=== PATIENT | male | born 1970 | race Caucasian/White ===

== ENCOUNTER → 2018-05-01 09:24 | Outpatient (CLI) | payer OTHER, SELFPAY ==
--- NOTE | 2018-05-01 09:34 | RAD_ITS ---
STUDY: X-RAY - LEFT WRIST REASON FOR EXAM: Male, 47 years old. Medial wrist pain. History of gout. TECHNIQUE: 3 view(s) of the wrist were obtained. COMPARISON: None. FINDINGS: Normal visualized distal radius and ulna. Normal radiocarpal articulation. There is a negative ulnar variance. Normal carpal bones. Normal carpal articulations. Normal carpometacarpal articulation of the thumb. Normal second through fifth carpometacarpal articulations. Normal visualized metacarpal bones. The soft tissue structures are unremarkable. There is no demonstrated osseous destructive lesion. There is no demonstrated acute fracture. RAD/Wrist min 3 Views IMPRESSION: No acute osseous abnormality of the left wrist. Electronically Signed: Syed Grace MD at 19:51 EDT , Service support ,
== END ==
PROVIDERS: Family Provider Nurse Practitioner; PCP Nurse Practitioner; Visit Provider Nurse Practitioner
DX: M25.532 Pain in left wrist (principal)
CPT/HCPCS: 73110

== ENCOUNTER → 2018-08-21 07:52 | Outpatient (CLI) | payer OTHER, SELFPAY ==
--- NOTE | 2018-08-21 14:08 | NEURO ---
NCS and/or EMG Patient Report Ordering Doctor: Nina Fuller DATE OF SERVICE: 08/21/18 Tray Trujillo is a 48-year-old male presents for electrodiagnostic testing of the left upper limb. He has a chief complaint of left wrist pain with intermittent left hand numbness. Electrodiagnostic findings: Left median motor nerve demonstrates normal distal latency, amplitude and conduction velocity. Normal left ulnar motor response, including conduction across the elbow. Normal left median and ulnar F wave. Sensory responses are within normal limits. On needle EMG all muscles tested in the left upper limb showed no evidence of denervation with normal motor unit action potentials. Electrodiagnostic impression: This is a normal electrodiagnostic study of the left upper limb. There is no electrodiagnostic evidence for peripheral neuropathy, including carpal tunnel syndrome. There is no electrodiagnostic evidence for cervical radiculopathy. If there are any further questions, please do not hesitate to contact me.
== END ==
PROVIDERS: Family Provider Nurse Practitioner; PCP Nurse Practitioner; Referring Provider Nurse Practitioner; Visit Provider Nurse Practitioner
DX: M25.532 Pain in left wrist (principal)
CPT/HCPCS: 95886; 95910

== ENCOUNTER 2023-11-25 20:42 | Emergency (ER) | payer OTHER, SELFPAY ==
[2023-11-25 20:43] VITALS: BP 139/90; PULSE 95; RESP 13; TEMP 36.4; O2SAT 100; BMI 34.0
--- OUTSIDE RECORDS SUMMARY | 2023-11-25 21:13 | XMS RPT_ITS | CCD ---
Author Name Unknown Address [address] [place] [address] Organization [facility] Care Team Providers Care Real Estate Loan Processor Name Role Phone Nina Fuller Unavailable Charlotte Kenny Unavailable Unavailable Unavailable Unavailable Nina Fuller Unavailable Debbie Quiros Unavailable Unavailable Unavailable Unavailable Gustavo Pulido Unavailable Unavailable Gustavo Mares Unavailable Unavailable Corey Maher Unavailable Nina Fuller CNP Unavailable Dr. Corey Maher Unavailable Gustavo Mares LPN Unavailable Unavailable Unavailable Unavailable Nina Fuller Unavailable Nina Fuller Referring Unavailable Brenna Dobson CNP Attending Unavailable Brenna Dobson CNP Consulting Unavailable Brenna Dobson CNP Unavailable [phone] Brenna Dobson CNP Unavailable [phone] Nina Fuller Unavailable Logan Mar CMA Unavailable Unavailable Medications Current Medications Medication Drug Class(es) Dates Sig (Normalized) Sig (Original) rosuvastatin calcium 5 mg oral tablet (20 sources) HMG-CoA Reductase Inhibitor Start: 07-30-2023 take 1 tablet by mouth once daily at bedtime rosuvastatin 5 mg oral tablet 1 (one) Tablet qhs for 0 days Quantity: 90 {Tablet} Refills: 0 Ordered: 30-Jul-2023 Brenna Dobson CNP Start : 30-Jul-2023 Active Completed/Discontinued Medications Medication Drug Class(es) Dates Sig (Normalized) Sig (Original) allopurinol 300 mg oral tablet (20 sources) Xanthine Oxidase Inhibitor Start: 08-17-2022 take 1 tablet by mouth once daily at mealtime Allopurinol 300 MG Oral Tablet 1 (one) Tablet daily with food for 0 days Quantity: 90 {Tablet} Refills: 3 Ordered: 17-Aug-2022 Brenna Dobson CNP Start : 17-Aug-2022 Active Problems Active Problems Problem Classification Problem Date Documented Da te Episodic/Chronic Complications of surgical procedures or medical care (15 sources) Drug therapy finding; Translations: [Medication side effect] Resolved: 03-28-2019 09-26-2019 Episodic Past or Other Problems Problem Classification Problem Date Documented Da te Episodic/Chronic External Injury - Adverse effects of medical drugs (5 sources) Medication side effects present; Translations: [Medication side effect] 07-26-2018 Results Test Name Value Interpretation Reference Range Facil ity Vital Signs Date Time Vital Sign Value Performing Clinician Facility 09-22-2022 08:03-0500 Body height 175.26 cm [facility]; [facility] Work Phone: 09-22-2022 08:03-0500 Body mass index (BMI) [Ratio] 31.79 kg/m2 [facility]; [facility] Work Phone: 09-22-2022 08:03-0500 Body surface area Derived from formula 2.13 m2 [facility]; [facility] Work Phone: 09-22-2022 08:03-0500 Body temperature 97 [degF] [facility]; [facility] Work Phone: 09-22-2022 08:03-0500 Body weight 97.64 kg [facility]; [facility] Work Phone: 09-22-2022 08:03-0500 Diastolic blood pressure 82 mm[Hg] [facility]; [facility] Work Phone: Encounters Encounter Date Encounter Type Care Provider Facility Start: 09-22-2022 End: 09-22-2022 Office outpatient visit 15 minutes Brenna Dobson CNP Work Phone: [facility] Start: 08-16-2022 ambulatory Nina [facility] Start: 09-30-2021 End: 09-30-2021 Office outpatient visit 25 minutes Nina Fuller Work Phone: [facility] Start: 09-30-2021 End: 09-30-2021 Annotation/Addendum Nina Fuller Work Phone: [facility] Start: 09-24-2021 End: 09-24-2021 Annotation/Addendum Nina Fuller Work Phone: [facility] Start: 04-01-2021 End: 04-01-2021 Office outpatient visit 25 minutes Nina Fuller [employer] Work Phone: [facility] Start: 04-01-2021 Review Nina Fuller [facility] [employer] Work Phone: [facility] Start: 12-20-2020 End: 12-20-2020 Patient encounter procedure Nina [facility] Start: 10-01-2020 End: 10-01-2020 Office outpatient visit 15 minutes Nina Fuller [facility] Start: 09-25-2020 End: 09-25-2020 Annotation/Addendum Nina Ayusholive [facility] Start: 04-09-2020 End: 04-09-2020 Office outpatient visit 25 minutes Nina Analibernie [facility] Start: 09-26-2019 End: 09-26-2019 Office outpatient visit 25 minutes Nina Analibernie [facility] Start: 09-21-2019 End: 09-21-2019 Patient encounter procedure Nina Analibernie [facility] Start: 03-28-2019 Review Nina Dawsonens [facility] Start: 03-28-2019 End: 03-28-2019 Office outpatient visit 25 minutes Nina [facility] Start: 12-06-2018 End: 12-06-2018 Annotation/Addendum Nina Ayusholive [facility] Start: 11-29-2018 End: 11-29-2018 Office outpatient visit 25 minutes Nina [facility] Start: 07-26-2018 End: 07-26-2018 Office outpatient visit 25 minutes Nina Fuller [facility] Start: 05-01-2018 End: 05-01-2018 Office outpatient visit 25 minutes Nina Fuller [facility] Start: 04-19-2018 End: 04-19-2018 Office outpatient visit 15 minutes Nina Fuller [facility] Start: 12-28-2017 End: 12-28-2017 Office outpatient visit 25 minutes Nina [facility] Start: 12-12-2017 End: 12-12-2017 Office outpatient new 30 minutes Nina Fuller [facility] Procedures Date Procedure Procedure Detail Performing Clinician Start: 08-21-2018 End: 08-21-2018 NCS and/or EMG Patient Comments: See Note; NOTES: [facility] Pulmonary Services/Neurology [address] [place] [address] MR#: [id number] Acct: [id number] Name: TRAY TRUJILLO Rep #: [id number] : 1970 48 From: Kaley Linton MD Referring Dr: Nina Fuller NP Status: REG CLI Ordering Dr: Date: Location: [facility] Sex: M C NCS and/or EMG Patient Report Ordering Doctor: Nina Fuller DATE OF SERVICE: 08/21/18 Tray Trujillo is a 48-year-old male presents for electrodiagnostic testing of the left upper limb. He has a chief complaint of left wrist pain with intermittent left hand numbness. Electrodiagnostic findings: Left median motor nerve demonstrates normal distal latency, amplitude and conduction velocity. Normal left ulnar motor response, including conduction across the elbow. Normal left median and ulnar F wave. Sensory responses are within normal limits. On needle EMG all muscles tested in the left upper limb showed no evidence of denervation with normal motor unit action potentials. Electrodiagnostic impression: This is a normal electrodiagnostic study of the left upper limb. There is no electrodiagnostic evidence for peripheral neuropathy, including carpal tunnel syndrome. There is no electrodiagnostic evidence for cervical radiculopathy. If there are any further questions, please do not hesitate to contact me. 08/21/18 1422 <Electronically signed by Kaley Linton MD> Date Kaley Linton MD CC: Nina Fuller NP; Kaley Linton Date Dictated: 08/21/181407 Date Transcribed: 08/21/181407 Explosive Ordnance Disposal Manager: UMA Signed Nina Fuller Start: 05-01-2018 End: 05-01-2018 Wrist min 3 Views Comments: See Note; NOTES: [facility] Imaging Services [address] [place] [address] Wrist min 3 Views MR#: [id number] Acct: [id number] Name: TRAY TRUJILLO Rep #: [id number] : 1970 M 47 From: Abiodun Grace MD PCP: Nina Fuller NP Status: REG CLI Study: Wrist min 3 Views Date of Exam: 05/01/18 Exam# [id number] Ordering Dr: Nina Fuller STUDY: X-RAY - LEFT WRIST REASON FOR EXAM: Male, 47 years old. Medial wrist pain. History of gout. TECHNIQUE: 3 view(s) of the wrist were obtained. COMPARISON: None. FINDINGS: Normal visualized distal radius and ulna. Normal radiocarpal articulation. There is a negative ulnar variance. Normal carpal bones. Normal carpal articulations. Normal carpometacarpal articulation of the thumb. Normal second through fifth carpometacarpal articulations. Normal visualized metacarpal bones. The soft tissue structures are unremarkable. There is no demonstrated osseous destructive lesion. There is no demonstrated acute fracture. RAD/Wrist min 3 Views IMPRESSION: No acute osseous abnormality of the left wrist. Electronically Signed: Syed Grace MD at 19:51 EDT , Service support , CC: Nina Fuller NP Explosive Ordnance Disposal Manager: Signed Nina Fuller Work Phone: Plan of Treatment Date Care Activity Detail Author Start: 09-22-2022 Procedure Education Eprescribed prescriptions (G8553) [facility] Work Phone: Start: 09-22-2022 Provider Instructions for Treatment [facility] Work Phone: Start: 09-30-2021 Procedure Education Eprescribed prescriptions (G8553) [facility] Work Phone: Start: 09-30-2021 Provider Instructions for Treatment [facility] Work Phone: Start: 09-30-2021 Assay of prostate specific antigen total PSA (PROSTATE SPECIFIC ANTIGEN) (V76.44) [facility] Work Phone: Payers Date Payer Category Payer Private Health Insurance [id number] 1970 Unknown [id number] Private Health Insurance [id number] Unknown Unknown [id number] Social History Date Type Detail Facility Alcohol use [facility] Work Phone: Instructions Note Date & Type Note Facility [facility] Work Phone: Instructions Note Date & Type Note Facility [facility] Work Phone: Instructions Note Date & Type Note Facility [facility]; [facility] Work Phone: Instructions Note Date & Type Note Facility [facility] Work Phone: Instructions Note Date & Type Note Facility [facility]; [facility] Work Phone: Family History Unknown Family Member Name Dates Details Maternal Grandfather Comments:DE Status:Active Maternal Grandmother Comments:breast and thyroid cancer, throat cancer Status:Active Unknown Family Member Name Dates Details Maternal Grandfather Comments:DE Status:Active Maternal Grandmother Comments:breast and thyroid cancer, throat cancer Status:Active Unknown Family Member Name Dates Details Maternal Grandfather Comments:DE Status:Active Maternal Grandmother Comments:breast and thyroid cancer, throat cancer Status:Active Unknown Family Member Name Dates Details Maternal Grandfather Comments:DE Status:Active Maternal Grandmother Comments:breast and thyroid cancer, throat cancer Status:Active Unknown Family Member Name Dates Details Maternal Grandfather Comments:DE Status:Active Maternal Grandmother Comments:breast and thyroid cancer, throat cancer Status:Active Unknown Family Member Name Dates Details Maternal Grandfather Comments:DE Status:Active Maternal Grandmother Comments:breast and thyroid cancer, throat cancer Status:Active Unknown Family Member Name Dates Details Maternal Grandfather Comments:DE Status:Active Maternal Grandmother Comments:breast and thyroid cancer, throat cancer Status:Active Unknown Family Member Name Dates Details Maternal Grandfather Comments:DE Status:Active Maternal Grandmother Comments:breast and thyroid cancer, throat cancer Status:Active Unknown Family Member Name Dates Details Maternal Grandfather Comments:DE Status:Active Maternal Grandmother Comments:breast and thyroid cancer, throat cancer Status:Active Unknown Family Member Name Dates Details Maternal Grandfather Comments:DE Status:Active Maternal Grandmother Comments:breast and thyroid cancer, throat cancer Status:Active Unknown Family Member Name Dates Details Maternal Grandfather Comments:DE Status:Active Maternal Grandmother Comments:breast and thyroid cancer, throat cancer Status:Active Unknown Family Member Name Dates Details Maternal Grandfather Comments:DE Status:Active Maternal Grandmother Comments:breast and thyroid cancer, throat cancer Status:Active Unknown Family Member Name Dates Details Maternal Grandfather Comments:DE Status:Active Maternal Grandmother Comments:breast and thyroid cancer, throat cancer Status:Active Unknown Family Member Name Dates Details Maternal Grandfather Comments:DE Status:Active Maternal Grandmother Comments:breast and thyroid cancer, throat cancer Status:Active Unknown Family Member Name Dates Details Maternal Grandfather Comments:DE Status:Active Maternal Grandmother Comments:breast and thyroid cancer, throat cancer Status:Active Unknown Family Member Name Dates Details Maternal Grandfather Comments:DE Status:Active Maternal Grandmother Comments:breast and thyroid cancer, throat cancer Status:Active Unknown Family Member Name Dates Details Maternal Grandfather Comments:DE Status:Active Maternal Grandmother Comments:breast and thyroid cancer, throat cancer Status:Active Unknown Family Member Name Dates Details Maternal Grandfather Comments:DE Status:Active Maternal Grandmother Comments:breast and thyroid cancer, throat cancer Status:Active Unknown Family Member Name Dates Details Maternal Grandfather Comments:DE Status:Active Maternal Grandmother Comments:breast and thyroid cancer, throat cancer Status:Active Instructions Name Dates Details Nonsmoker : How to access he alth information online Indication:Nonsmoker Nonsmoker : How to access he alth information online - Detail Indication:Nonsmoker Nonsmoker : Patient Instruct ions Indication:Nonsmoker Impaired fasting glucose : H ow to access health information online Indication:Impaired fasting glucose Impaired fasting glucose : H ow to access health information online - Detail Indication:Impaired fasting glucose Impaired fasting glucose : P atient Instructions Indication:Impaired fasting glucose Hypertension : How to access health information online Indication:Hypertension Hypertension : How to access health information online - Detail Indication:Hypertension Hematuria : Patient Instruct ions Indication:Hematuria Hypertension : Patient Instr uctions Indication:Hypertension Name Dates Details Impaired fasting glucose : H ow to access health information online Indication:Impaired fasting glucose Impaired fasting glucose : H ow to access health information online - Detail Indication:Impaired fasting glucose Impaired fasting glucose : P atient Instructions Indication:Impaired fasting glucose Nonsmoker : How to access he alth information online Indication:Nonsmoker Nonsmoker : How to access he alth information online - Detail Indication:Nonsmoker Nonsmoker : Patient Instruct ions Indication:Nonsmoker Hypertension : How to access health information online Indication:Hypertension Hypertension : How to access health information online - Detail Indication:Hypertension Hematuria : Patient Instruct ions Indication:Hematuria Hypertension : Patient Instr uctions Indication:Hypertension Name Dates Details Impaired fasting glucose : H ow to access health information online Indication:Impaired fasting glucose Impaired fasting glucose : H ow to access health information online - Detail Indication:Impaired fasting glucose Impaired fasting glucose : P atient Instructions Indication:Impaired fasting glucose Nonsmoker : How to access he alth information online Indication:Nonsmoker Nonsmoker : How to access he alth information online - Detail Indication:Nonsmoker Nonsmoker : Patient Instruct ions Indication:Nonsmoker Hypertension : How to access health information online Indication:Hypertension Hypertension : How to access health information online - Detail Indication:Hypertension Hematuria : Patient Instruct ions Indication:Hematuria Hypertension : Patient Instr uctions Indication:Hypertension Name Dates Details Impaired fasting glucose : H ow to access health information online Indication:Impaired fasting glucose Impaired fasting glucose : H ow to access health information online - Detail Indication:Impaired fasting glucose Impaired fasting glucose : P atient Instructions Indication:Impaired fasting glucose Nonsmoker : How to access he alth information online Indication:Nonsmoker Nonsmoker : How to access he alth information online - Detail Indication:Nonsmoker Nonsmoker : Patient Instruct ions Indication:Nonsmoker Hypertension : How to access health information online Indication:Hypertension Hypertension : How to access health information online - Detail Indication:Hypertension Hematuria : Patient Instruct ions Indication:Hematuria Hypertension : Patient Instr uctions Indication:Hypertension Name Dates Details Impaired fasting glucose : H ow to access health information online Indication:Impaired fasting glucose Impaired fasting glucose : H ow to access health information online - Detail Indication:Impaired fasting glucose Impaired fasting glucose : P atient Instructions Indication:Impaired fasting glucose Nonsmoker : How to access he alth information online Indication:Nonsmoker Nonsmoker : How to access he alth information online - Detail Indication:Nonsmoker Nonsmoker : Patient Instruct ions Indication:Nonsmoker Hypertension : How to access health information online Indication:Hypertension Hypertension : How to access health information online - Detail Indication:Hypertension Hematuria : Patient Instruct ions Indication:Hematuria Hypertension : Patient Instr uctions Indication:Hypertension Name Dates Details How to access health informa tion online Indication:Impaired fasting glucose Start:28-Mar-2019 Instruction Type:Patient Education How to access health informa tion online - Detail Indication:Impaired fasting glucose Start:28-Mar-2019 Instruction Type:Patient Education Patient Instructions Indication:BMI 30.0-30.9,adult Start:28-Mar-2019 Instruction Type:Provider Instructions for Treatment How to access health informa tion online Indication:Impaired fasting glucose Start:29-Nov-2018 Instruction Type:Patient Education How to access health informa tion online - Detail Indication:Impaired fasting glucose Start:29-Nov-2018 Instruction Type:Patient Education Patient Instructions Indication:Impaired fasting glucose Start:29-Nov-2018 Instruction Type:Provider Instructions for Treatment How to access health informa tion online Indication:Nonsmoker Start:26-Jul-2018 Instruction Type:Patient Education How to access health informa tion online - Detail Indication:Nonsmoker Start:26-Jul-2018 Instruction Type:Patient Education Patient Instructions Indication:Nonsmoker Start:26-Jul-2018 Instruction Type:Provider Instructions for Treatment How to access health informa tion online Indication:Nonsmoker Start:01-May-2018 Instruction Type:Patient Education How to access health informa tion online - Detail Indication:Nonsmoker Start:01-May-2018 Instruction Type:Patient Education Patient Instructions Indication:Nonsmoker Start:01-May-2018 Instruction Type:Provider Instructions for Treatment How to access health informa tion online Indication:Impaired fasting glucose Start:19-Apr-2018 Instruction Type:Patient Education How to access health informa tion online - Detail Indication:Impaired fasting glucose Start:19-Apr-2018 Instruction Type:Patient Education Patient Instructions Indication:Impaired fasting glucose Start:19-Apr-2018 Instruction Type:Provider Instructions for Treatment How to access health informa tion online Indication:Hypertension Start:28-Dec-2017 Instruction Type:Patient Education How to access health informa tion online - Detail Indication:Hypertension Start:28-Dec-2017 Instruction Type:Patient Education Patient Instructions Indication:Hematuria Start:28-Dec-2017 Instruction Type:Provider Instructions for Treatment How to access health informa tion online Indication:Hypertension Start:12-Dec-2017 Instruction Type:Patient Education How to access health informa tion online - Detail Indication:Hypertension Start:12-Dec-2017 Instruction Type:Patient Education Patient Instructions Indication:Hypertension Start:12-Dec-2017 Instruction Type:Provider Instructions for Treatment Name Dates Details How to access health informa tion online Indication:Impaired fasting glucose Start:28-Mar-2019 Instruction Type:Patient Education How to access health informa tion online - Detail Indication:Impaired fasting glucose Start:28-Mar-2019 Instruction Type:Patient Education Patient Instructions Indication:BMI 30.0-30.9,adult Start:28-Mar-2019 Instruction Type:Provider Instructions for Treatment How to access health informa tion online Indication:Impaired fasting glucose Start:29-Nov-2018 Instruction Type:Patient Education How to access health informa tion online - Detail Indication:Impaired fasting glucose Start:29-Nov-2018 Instruction Type:Patient Education Patient Instructions Indication:Impaired fasting glucose Start:29-Nov-2018 Instruction Type:Provider Instructions for Treatment How to access health informa tion online Indication:Nonsmoker Start:26-Jul-2018 Instruction Type:Patient Education How to access health informa tion online - Detail Indication:Nonsmoker Start:26-Jul-2018 Instruction Type:Patient Education Patient Instructions Indication:Nonsmoker Start:26-Jul-2018 Instruction Type:Provider Instructions for Treatment How to access health informa tion online Indication:Nonsmoker Start:01-May-2018 Instruction Type:Patient Education How to access health informa tion online - Detail Indication:Nonsmoker Start:01-May-2018 Instruction Type:Patient Education Patient Instructions Indication:Nonsmoker Start:01-May-2018 Instruction Type:Provider Instructions for Treatment How to access health informa tion online Indication:Impaired fasting glucose Start:19-Apr-2018 Instruction Type:Patient Education How to access health informa tion online - Detail Indication:Impaired fasting glucose Start:19-Apr-2018 Instruction Type:Patient Education Patient Instructions Indication:Impaired fasting glucose Start:19-Apr-2018 Instruction Type:Provider Instructions for Treatment How to access health informa tion online Indication:Hypertension Start:28-Dec-2017 Instruction Type:Patient Education How to access health informa tion online - Detail Indication:Hypertension Start:28-Dec-2017 Instruction Type:Patient Education Patient Instructions Indication:Hematuria Start:28-Dec-2017 Instruction Type:Provider Instructions for Treatment How to access health informa tion online Indication:Hypertension Start:12-Dec-2017 Instruction Type:Patient Education How to access health informa tion online - Detail Indication:Hypertension Start:12-Dec-2017 Instruction Type:Patient Education Patient Instructions Indication:Hypertension Start:12-Dec-2017 Instruction Type:Provider Instructions for Treatment Name Dates Details How to access health informa tion online Indication:Impaired fasting glucose Start:09-Apr-2020 Instruction Type:Patient Education How to access health informa tion online - Detail Indication:Impaired fasting glucose Start:09-Apr-2020 Instruction Type:Patient Education Patient Instructions Indication:Encounter for screening for malignant neoplasm of prostate (Renamed from Screening for prostate cancer) Start:09-Apr-2020 Instruction Type:Provider Instructions for Treatment Patient Instructions Indication:Impaired fasting glucose Start:26-Sep-2019 Instruction Type:Provider Instructions for Treatment How to access health informa tion online Indication:Impaired fasting glucose Start:26-Sep-2019 Instruction Type:Patient Education How to access health informa tion online - Detail Indication:Impaired fasting glucose Start:26-Sep-2019 Instruction Type:Patient Education How to access health informa tion online Indication:Impaired fasting glucose Start:28-Mar-2019 Instruction Type:Patient Education How to access health informa tion online - Detail Indication:Impaired fasting glucose Start:28-Mar-2019 Instruction Type:Patient Education Patient Instructions Indication:BMI 30.0-30.9,adult Start:28-Mar-2019 Instruction Type:Provider Instructions for Treatment How to access health informa tion online Indication:Impaired fasting glucose Start:29-Nov-2018 Instruction Type:Patient Education How to access health informa tion online - Detail Indication:Impaired fasting glucose Start:29-Nov-2018 Instruction Type:Patient Education Patient Instructions Indication:Impaired fasting glucose Start:29-Nov-2018 Instruction Type:Provider Instructions for Treatment How to access health informa tion online Indication:Nonsmoker Start:26-Jul-2018 Instruction Type:Patient Education How to access health informa tion online - Detail Indication:Nonsmoker Start:26-Jul-2018 Instruction Type:Patient Education Patient Instructions Indication:Nonsmoker Start:26-Jul-2018 Instruction Type:Provider Instructions for Treatment How to access health informa tion online Indication:Nonsmoker Start:01-May-2018 Instruction Type:Patient Education How to access health informa tion online - Detail Indication:Nonsmoker Start:01-May-2018 Instruction Type:Patient Education Patient Instructions Indication:Nonsmoker Start:01-May-2018 Instruction Type:Provider Instructions for Treatment How to access health informa tion online Indication:Impaired fasting glucose Start:19-Apr-2018 Instruction Type:Patient Education How to access health informa tion online - Detail Indication:Impaired fasting glucose Start:19-Apr-2018 Instruction Type:Patient Education Patient Instructions Indication:Impaired fasting glucose Start:19-Apr-2018 Instruction Type:Provider Instructions for Treatment How to access health informa tion online Indication:Hypertension Start:28-Dec-2017 Instruction Type:Patient Education How to access health informa tion online - Detail Indication:Hypertension Start:28-Dec-2017 Instruction Type:Patient Education Patient Instructions Indication:Hematuria Start:28-Dec-2017 Instruction Type:Provider Instructions for Treatment How to access health informa tion online Indication:Hypertension Start:12-Dec-2017 Instruction Type:Patient Education How to access health informa tion online - Detail Indication:Hypertension Start:12-Dec-2017 Instruction Type:Patient Education Patient Instructions Indication:Hypertension Start:12-Dec-2017 Instruction Type:Provider Instructions for Treatment Name Dates Details How to access health informa tion online Indication:Impaired fasting glucose Start:09-Apr-2020 Instruction Type:Patient Education How to access health informa tion online - Detail Indication:Impaired fasting glucose Start:09-Apr-2020 Instruction Type:Patient Education Patient Instructions Indication:Encounter for screening for malignant neoplasm of prostate (Renamed from Screening for prostate cancer) Start:09-Apr-2020 Instruction Type:Provider Instructions for Treatment Patient Instructions Indication:Impaired fasting glucose Start:26-Sep-2019 Instruction Type:Provider Instructions for Treatment How to access health informa tion online Indication:Impaired fasting glucose Start:26-Sep-2019 Instruction Type:Patient Education How to access health informa tion online - Detail Indication:Impaired fasting glucose Start:26-Sep-2019 Instruction Type:Patient Education How to access health informa tion online Indication:Impaired fasting glucose Start:28-Mar-2019 Instruction Type:Patient Education How to access health informa tion online - Detail Indication:Impaired fasting glucose Start:28-Mar-2019 Instruction Type:Patient Education Patient Instructions Indication:BMI 30.0-30.9,adult Start:28-Mar-2019 Instruction Type:Provider Instructions for Treatment How to access health informa tion online Indication:Impaired fasting glucose Start:29-Nov-2018 Instruction Type:Patient Education How to access health informa tion online - Detail Indication:Impaired fasting glucose Start:29-Nov-2018 Instruction Type:Patient Education Patient Instructions Indication:Impaired fasting glucose Start:29-Nov-2018 Instruction Type:Provider Instructions for Treatment How to access health informa tion online Indication:Nonsmoker Start:26-Jul-2018 Instruction Type:Patient Education How to access health informa tion online - Detail Indication:Nonsmoker Start:26-Jul-2018 Instruction Type:Patient Education Patient Instructions Indication:Nonsmoker Start:26-Jul-2018 Instruction Type:Provider Instructions for Treatment How to access health informa tion online Indication:Nonsmoker Start:01-May-2018 Instruction Type:Patient Education How to access health informa tion online - Detail Indication:Nonsmoker Start:01-May-2018 Instruction Type:Patient Education Patient Instructions Indication:Nonsmoker Start:01-May-2018 Instruction Type:Provider Instructions for Treatment How to access health informa tion online Indication:Impaired fasting glucose Start:19-Apr-2018 Instruction Type:Patient Education How to access health informa tion online - Detail Indication:Impaired fasting glucose Start:19-Apr-2018 Instruction Type:Patient Education Patient Instructions Indication:Impaired fasting glucose Start:19-Apr-2018 Instruction Type:Provider Instructions for Treatment How to access health informa tion online Indication:Hypertension Start:28-Dec-2017 Instruction Type:Patient Education How to access health informa tion online - Detail Indication:Hypertension Start:28-Dec-2017 Instruction Type:Patient Education Patient Instructions Indication:Hematuria Start:28-Dec-2017 Instruction Type:Provider Instructions for Treatment How to access health informa tion online Indication:Hypertension Start:12-Dec-2017 Instruction Type:Patient Education How to access health informa tion online - Detail Indication:Hypertension Start:12-Dec-2017 Instruction Type:Patient Education Patient Instructions Indication:Hypertension Start:12-Dec-2017 Instruction Type:Provider Instructions for Treatment Name Dates Details Patient Instructions Indication:Encounter for screening for lipid disorder Start:01-Oct-2020 Instruction Type:Provider Instructions for Treatment Patient Instructions Indication:Nonsmoker Start:01-Oct-2020 Instruction Type:Provider Instructions for Treatment How to Access Health Informa tion Online using Patient Portal and [employer] Apps Indication:Nonsmoker Start:01-Oct-2020 Instruction Type:Patient Education How to access health informa tion online Indication:Impaired fasting glucose Start:09-Apr-2020 Instruction Type:Patient Education How to access health informa tion online - Detail Indication:Impaired fasting glucose Start:09-Apr-2020 Instruction Type:Patient Education Patient Instructions Indication:Encounter for screening for malignant neoplasm of prostate (Renamed from Screening for prostate cancer) Start:09-Apr-2020 Instruction Type:Provider Instructions for Treatment Patient Instructions Indication:Impaired fasting glucose Start:26-Sep-2019 Instruction Type:Provider Instructions for Treatment How to access health informa tion online Indication:Impaired fasting glucose Start:26-Sep-2019 Instruction Type:Patient Education How to access health informa tion online - Detail Indication:Impaired fasting glucose Start:26-Sep-2019 Instruction Type:Patient Education How to access health informa tion online Indication:Impaired fasting glucose Start:28-Mar-2019 Instruction Type:Patient Education How to access health informa tion online - Detail Indication:Impaired fasting glucose Start:28-Mar-2019 Instruction Type:Patient Education Patient Instructions Indication:BMI 30.0-30.9,adult Start:28-Mar-2019 Instruction Type:Provider Instructions for Treatment How to access health informa tion online Indication:Impaired fasting glucose Start:29-Nov-2018 Instruction Type:Patient Education How to access health informa tion online - Detail Indication:Impaired fasting glucose Start:29-Nov-2018 Instruction Type:Patient Education Patient Instructions Indication:Impaired fasting glucose Start:29-Nov-2018 Instruction Type:Provider Instructions for Treatment How to access health informa tion online Indication:Nonsmoker Start:26-Jul-2018 Instruction Type:Patient Education How to access health informa tion online - Detail Indication:Nonsmoker Start:26-Jul-2018 Instruction Type:Patient Education Patient Instructions Indication:Nonsmoker Start:26-Jul-2018 Instruction Type:Provider Instructions for Treatment How to access health informa tion online Indication:Nonsmoker Start:01-May-2018 Instruction Type:Patient Education How to access health informa tion online - Detail Indication:Nonsmoker Start:01-May-2018 Instruction Type:Patient Education Patient Instructions Indication:Nonsmoker Start:01-May-2018 Instruction Type:Provider Instructions for Treatment How to access health informa tion online Indication:Impaired fasting glucose Start:19-Apr-2018 Instruction Type:Patient Education How to access health informa tion online - Detail Indication:Impaired fasting glucose Start:19-Apr-2018 Instruction Type:Patient Education Patient Instructions Indication:Impaired fasting glucose Start:19-Apr-2018 Instruction Type:Provider Instructions for Treatment How to access health informa tion online Indication:Hypertension Start:28-Dec-2017 Instruction Type:Patient Education How to access health informa tion online - Detail Indication:Hypertension Start:28-Dec-2017 Instruction Type:Patient Education Patient Instructions Indication:Hematuria Start:28-Dec-2017 Instruction Type:Provider Instructions for Treatment How to access health informa tion online Indication:Hypertension Start:12-Dec-2017 Instruction Type:Patient Education How to access health informa tion online - Detail Indication:Hypertension Start:12-Dec-2017 Instruction Type:Patient Education Patient Instructions Indication:Hypertension Start:12-Dec-2017 Instruction Type:Provider Instructions for Treatment Name Dates Details Patient Instructions Indication:Encounter for screening for lipid disorder Start:01-Oct-2020 Instruction Type:Provider Instructions for Treatment Patient Instructions Indication:Nonsmoker Start:01-Oct-2020 Instruction Type:Provider Instructions for Treatment How to Access Health Informa tion Online using Patient Portal and [employer] Apps Indication:Nonsmoker Start:01-Oct-2020 Instruction Type:Patient Education How to access health informa tion online Indication:Impaired fasting glucose Start:09-Apr-2020 Instruction Type:Patient Education How to access health informa tion online - Detail Indication:Impaired fasting glucose Start:09-Apr-2020 Instruction Type:Patient Education Patient Instructions Indication:Encounter for screening for malignant neoplasm of prostate (Renamed from Screening for prostate cancer) Start:09-Apr-2020 Instruction Type:Provider Instructions for Treatment Patient Instructions Indication:Impaired fasting glucose Start:26-Sep-2019 Instruction Type:Provider Instructions for Treatment How to access health informa tion online Indication:Impaired fasting glucose Start:26-Sep-2019 Instruction Type:Patient Education How to access health informa tion online - Detail Indication:Impaired fasting glucose Start:26-Sep-2019 Instruction Type:Patient Education How to access health informa tion online Indication:Impaired fasting glucose Start:28-Mar-2019 Instruction Type:Patient Education How to access health informa tion online - Detail Indication:Impaired fasting glucose Start:28-Mar-2019 Instruction Type:Patient Education Patient Instructions Indication:BMI 30.0-30.9,adult Start:28-Mar-2019 Instruction Type:Provider Instructions for Treatment How to access health informa tion online Indication:Impaired fasting glucose Start:29-Nov-2018 Instruction Type:Patient Education How to access health informa tion online - Detail Indication:Impaired fasting glucose Start:29-Nov-2018 Instruction Type:Patient Education Patient Instructions Indication:Impaired fasting glucose Start:29-Nov-2018 Instruction Type:Provider Instructions for Treatment How to access health informa tion online Indication:Nonsmoker Start:26-Jul-2018 Instruction Type:Patient Education How to access health informa tion online - Detail Indication:Nonsmoker Start:26-Jul-2018 Instruction Type:Patient Education Patient Instructions Indication:Nonsmoker Start:26-Jul-2018 Instruction Type:Provider Instructions for Treatment How to access health informa tion online Indication:Nonsmoker Start:01-May-2018 Instruction Type:Patient Education How to access health informa tion online - Detail Indication:Nonsmoker Start:01-May-2018 Instruction Type:Patient Education Patient Instructions Indication:Nonsmoker Start:01-May-2018 Instruction Type:Provider Instructions for Treatment How to access health informa tion online Indication:Impaired fasting glucose Start:19-Apr-2018 Instruction Type:Patient Education How to access health informa tion online - Detail Indication:Impaired fasting glucose Start:19-Apr-2018 Instruction Type:Patient Education Patient Instructions Indication:Impaired fasting glucose Start:19-Apr-2018 Instruction Type:Provider Instructions for Treatment How to access health informa tion online Indication:Hypertension Start:28-Dec-2017 Instruction Type:Patient Education How to access health informa tion online - Detail Indication:Hypertension Start:28-Dec-2017 Instruction Type:Patient Education Patient Instructions Indication:Hematuria Start:28-Dec-2017 Instruction Type:Provider Instructions for Treatment How to access health informa tion online Indication:Hypertension Start:12-Dec-2017 Instruction Type:Patient Education How to access health informa tion online - Detail Indication:Hypertension Start:12-Dec-2017 Instruction Type:Patient Education Patient Instructions Indication:Hypertension Start:12-Dec-2017 Instruction Type:Provider Instructions for Treatment Name Dates Details How to access health informa tion online Indication:Impaired fasting glucose Start:28-Mar-2019 Instruction Type:Patient Education How to access health informa tion online - Detail Indication:Impaired fasting glucose Start:28-Mar-2019 Instruction Type:Patient Education Patient Instructions Indication:BMI 30.0-30.9,adult Start:28-Mar-2019 Instruction Type:Provider Instructions for Treatment How to access health informa tion online Indication:Impaired fasting glucose Start:29-Nov-2018 Instruction Type:Patient Education How to access health informa tion online - Detail Indication:Impaired fasting glucose Start:29-Nov-2018 Instruction Type:Patient Education Patient Instructions Indication:Impaired fasting glucose Start:29-Nov-2018 Instruction Type:Provider Instructions for Treatment How to access health informa tion online Indication:Nonsmoker Start:26-Jul-2018 Instruction Type:Patient Education How to access health informa tion online - Detail Indication:Nonsmoker Start:26-Jul-2018 Instruction Type:Patient Education Patient Instructions Indication:Nonsmoker Start:26-Jul-2018 Instruction Type:Provider Instructions for Treatment How to access health informa tion online Indication:Nonsmoker Start:01-May-2018 Instruction Type:Patient Education How to access health informa tion online - Detail Indication:Nonsmoker Start:01-May-2018 Instruction Type:Patient Education Patient Instructions Indication:Nonsmoker Start:01-May-2018 Instruction Type:Provider Instructions for Treatment How to access health informa tion online Indication:Impaired fasting glucose Start:19-Apr-2018 Instruction Type:Patient Education How to access health informa tion online - Detail Indication:Impaired fasting glucose Start:19-Apr-2018 Instruction Type:Patient Education Patient Instructions Indication:Impaired fasting glucose Start:19-Apr-2018 Instruction Type:Provider Instructions for Treatment How to access health informa tion online Indication:Hypertension Start:28-Dec-2017 Instruction Type:Patient Education How to access health informa tion online - Detail Indication:Hypertension Start:28-Dec-2017 Instruction Type:Patient Education Patient Instructions Indication:Hematuria Start:28-Dec-2017 Instruction Type:Provider Instructions for Treatment How to access health informa tion online Indication:Hypertension Start:12-Dec-2017 Instruction Type:Patient Education How to access health informa tion online - Detail Indication:Hypertension Start:12-Dec-2017 Instruction Type:Patient Education Patient Instructions Indication:Hypertension Start:12-Dec-2017 Instruction Type:Provider Instructions for Treatment Summary Purpose Advance Directives No Advanced Directives Records Found Additional Source Comments (unrecognized sect ion and content) No Status Records Found INFORMATION SOURCE (unrecogn ized section and content) FOR RECORDS PERTAINING TO PATIENTS WHO ARE OR HAVE BEEN ENROLLED IN A CHEMICAL DEPENDENCY/SUBSTANCEABUSE PROGRAM, SOME INFORMATION MAY BE OMITTED. This clinical summary was aggregated from multiple sources. Caution should be exercised in using it in the provision of clinical care. This summary normalizes information from multiple sources, and as a consequence, information in this document may materially change the coding, format and clinical context of patient data. In addition, data may be omitted in some cases. CLINICAL DECISIONS SHOULD BE BASED ON THE PRIMARY CLINICAL RECORDS. [employer] provides no warranty or guarantee of the accuracy or completeness of information in this document.
--- NOTE | 2023-11-25 21:21 | EKG12_ITS ---
Test Reason : CP Blood Pressure : / mmHG Vent. Rate : 099 BPM Atrial Rate : 099 BPM P-R Int : 142 ms QRS Dur : 086 ms QT Int : 334 ms P-R-T Axes : 038 015 053 degrees QTc Int : 428 ms Normal sinus rhythm Nonspecific T wave abnormality Abnormal ECG Confirmed by Isaac Perez ([id number]), news copy editor HALEIGH JACQUES ([id number]) on 11/27/2023 9:14:01 AM Referred By: MANOHAR Confirmed By:Isaac Perez
[2023-11-25] MEDS: Aspirin 81 MG TAB.CHEW 324 MG PO (21:25)
--- NOTE | 2023-11-25 21:25 | RAD_ITS ---
STUDY: X-RAY CHEST REASON FOR EXAM: Male, 53 years old. chest pain TECHNIQUE: AP portable COMPARISON: None. FINDINGS: The lungs are clear and expanded. There is no demonstrated pleural abnormality. Normal size heart. Normal mediastinum and jayesh. Normal visualized pulmonary arteries. Normal visualized aortic arch and descending thoracic aorta. Normal visualized thoracic spine. Normal visualized ribs, clavicles, and shoulders. There is no demonstrated abnormality of the visualized soft tissue structures of the upper abdomen. RAD/Chest 1 View (Portable) IMPRESSION: Normal x-ray examination of the chest. Electronically Signed: Evan Teran MD at 22:26 EST ,
[2023-11-25 21:27] VITALS: O2SAT 95
[2023-11-25 21:38] LABS: Absolute Lymphocyte Count 3.24 X10^3/uL (0.83-4.51); Basophil# 0.08 X10^3/uL; Basophil% 1.3 % (0-1); Eosinophil# 0.32 X10^3/uL; Eosinophils% 5.1 % (0-5); Hematocrit 45.7 % (40-54); Lymphocyte # 3.24 X10^3/ul (0.83-4.51); Lymphocyte % 51.4 % (19-41); Mean Corpuscular Hgb 31.9 pg (27.0-32.0); Mean Corpuscular Volume 91.2 fL (80-94); Mean Platelet Vol. 10.4 fl (6.2-12.0); Monocyte% 9.5 % (0-10); NRBC Flagged by Analyzer 0 % (0-5); Neutrophil # 2.03 X10^3/uL (2.7-7.7); Neutrophil % 32.2 % (47-70); Platelet Count 182 K/mm3 (150-450); RBC Distribution Width CV 11.9 % (11.6-14.6); RBC Distribution Width SD 39.7 fl (35.1-43.9); Red Blood Count 5.01 M/mm3 (4.6-6.2); White Blood Count 6.3 K/mm3 (4.4-11.0)
[2023-11-25 21:42] VITALS: BP 145/94; PULSE 105; RESP 18; O2SAT 93
--- NOTE | 2023-11-25 21:53 | EX.ED.DYSGE1 ---
HPI <ASH Boo - Last Filed: 11/25/23 22:01> History of Present Illness Chief Complaint: Chest Pain Narrative Narrative: Patient is a 53-year-old male with history of anxiety, hypertension, gout, hyperlipidemia, GERD who presents to the emergency department with chest pain that had some tingling to his left arm. Patient states over the last 3 to 4 months, he has been getting chest pains across his chest. However patient has significant anxiety and thinks it is that. However today, he is up tingling to his chest so he thought that he should come get it checked out. He does state that he generally has a burning sensation from his gut to his epigastric area which is his normal chest pain. [facility] <ASH Boo - Last Filed: 11/25/23 22:01> [facility] Medical History (Updated 11/26/23 @ 00:[address] Fletcher Zamora, DO) Acid reflux Gout Hypercholesteremia Hypertension Home Medications allopurinol 300 mg tablet 300 mg PO DAILY 11/25/23 [History Last Taken Unknown] losartan 100 mg tablet 100 mg PO DAILY 11/25/23 [History Last Taken Unknown] rosuvastatin 5 mg tablet 5 mg PO DAILY 11/25/23 [History Last Taken Unknown] Allergy/AdvReac Type Severity Reaction Status Date / Time No Known Allergies Allergy Verified 11/25/23 20:47 Social History Smoking Status: Never smoker ROS <ASH Boo - Last Filed: 11/25/23 22:01> ROS ED ROS Narrative Constitutional: Negative for fever, chills, weight loss, weakness Eyes: Negative for vision loss, vision change, double vision ENT: Negative for any sore throat, ear pain, congestion Cardiovascular: Negative for any palpitations. Positive for chest pain, chest burning Respiratory: Negative for any cough, sputum production, hemoptysis, dyspnea, dyspnea on exertion, orthopnea Gastrointestinal: Negative for any abdominal pain, nausea, vomiting, diarrhea, constipation, blood in stool, blood in vomit : Negative for any urinary frequency, dysuria, retention, blood in urine Muscle skeletal: Negative for any neck pain, back pain Neurological: Negative for any headache, syncope, dizziness. Positive for left arm numbness and tingling Skin: Negative for any rashes, itching, abrasions, lacerations Psychiatric: Negative for any depression, anxiety, stress, suicidal ideation, homicidal ideation Hematologic: Negative for any excessive bruising, easy bleeding EXAM <ASH Boo - Last Filed: 11/25/23 22:01> Physical Exam Narrative Exam Narrative: Vital signs reviewed. HEET: Head normocephalic atraumatic, TMs clear bilaterally. Posterior pharynx is clear, moist mucous membranes. Nares clear bilaterally. Neck: Supple with no lymphadenopathy or tenderness. No signs of meningismus. Cardiac: Regular rate and rhythm no murmurs gallops or rubs, equal peripheral pulses bilaterally. Respiratory: Lungs clear to auscultation bilaterally. No chest tenderness. Abdomen: Soft, nontender, nondistended. No abdominal bruit or pulsatile masses. No hepatosplenomegaly Extremities: No peripheral edema, no signs of gross trauma or deformity. Active full range of motion of all extremities. Neuro: Cranial nerves II through XII intact, no focal neurological deficits. Skin: Clean dry and intact with no rash, purpura, petechiae, vesicles or pustules. Backs/flank: No CVA tenderness, no midline spinal tenderness, no deformity. Psych: Normal mood and affect. No SI, HI or acute psychosis. Const Vital Signs: 11/25/23 20:43 11/25/23 20:47 11/25/23 21:27 Temperature 97.5 F L Temperature Source Oral Pulse Rate 95 Respiratory Rate 13 Respiratory Effort Normal Non-Labored Blood Pressure 139/90 H Blood Pressure Mean 106 Pulse Ox 100 95 Oxygen Delivery Method Room Air Room Air 11/25/23 21:42 Temperature Temperature Source Pulse Rate 105 H Respiratory Rate 18 Respiratory Effort Blood Pressure 145/94 H Blood Pressure Mean 111 Pulse Ox 93 Oxygen Delivery Method Room Air <Dr. Fletcher Zamora DO - Last Filed: 11/26/23 00:27> Physical Exam Const Vital Signs: 11/25/23 20:43 11/25/23 20:47 11/25/23 21:27 Temperature 97.5 F L Temperature Source Oral Pulse Rate 95 Respiratory Rate 13 Respiratory Effort Normal Non-Labored Blood Pressure 139/90 H Blood Pressure Mean 106 Pulse Ox 100 95 Oxygen Delivery Method Room Air Room Air 11/25/23 21:42 Temperature Temperature Source Pulse Rate 105 H Respiratory Rate 18 Respiratory Effort Blood Pressure 145/94 H Blood Pressure Mean 111 Pulse Ox 93 Oxygen Delivery Method Room Air [facility] <ASH Boo - Last Filed: 11/25/23 22:01> [facility] Lab Data Labs: Laboratory Results - last 24 hr 11/25/23 11/25/23 20:49 22:47 WBC 6.3 RBC 5.01 Hgb 16.0 Hct 45.7 MCV 91.2 MCH 31.9 MCHC 35.0 RDW Std Deviation 39.7 RDW Coeff of Roldan 11.9 Plt Count 182 MPV 10.4 Immature Gran % (Auto) 0.500 Neut % (Auto) 32.2 L Lymph % (Auto) 51.4 H Gooding % (Auto) 9.5 Eos % (Auto) 5.1 H Baso % (Auto) 1.3 H Absolute Neuts (auto) 2.0 Absolute Lymphs (auto) 3.24 Nucleated RBC % 0 D-Dimer Quant (PE/DVT) < 0.27 L Sodium 144 Potassium 3.6 Chloride 107 Carbon Dioxide 27.0 Anion Gap 10 BUN 11 Creatinine 1.01 Estim Creat Clear Calc 94.63 Est GFR (MDRD) Af Amer 99 Est GFR (MDRD) Non-Af 82 BUN/Creatinine Ratio 10.9 Glucose 163 H Calcium 9.0 Troponin I High Sens 52 42 Radiography Diagnostic Testing: Clinical Impression(s) from Imaging Studies Chest X-Ray 11/25/23 21:25 IMPRESSION: Normal x-ray examination of the chest. Electronically Signed: Evan Teran MD at 22:26 EST Reading Location ID and State: [facility] / [place] Tel , Service support , EKG Normal sinus rhythm: Attestation: I personally reviewed and interpreted this EKG as follows: Interpretation: Sinus Rhythm Comments: Normal sinus rhythm, rate of 99 bpm, CA interval 142 ms, QRS duration 86 ms, no acute ST elevation, no acute infarct noted. Treatment and Re-Evaluation :: Patient appears to be in no obvious distress, vital signs are stable. Presenting to the emergency department with complaints of left-sided chest pain with left arm tingling. Differential diagnose includes ACS, MO, PE, anxiety, GERD. Patient will receive a complete cardiac workup including a D-dimer. Patient received a chest x-ray, troponin x 2. Patient given aspirin as well as a GI cocktail. At this time patient will be reevaluated. <Dr. Fletcher Zamora, DO - Last Filed: 11/26/23 00:27> [facility] Narrative Medical decision making narrative: Patient is a 53-year-old male with past medical history of hypertension as well as anxiety who reports he has been having intermittent chest discomfort for multiple months. He states however this evening he noticed some numbness and tingling radiating to his left arm which was different from his baseline and therefore comes in for evaluation. PE: General: Awake alert no acute distress Heart: Slightly tachycardic rate with regular rhythm. Radial and carotid pulses are equal and symmetric. No murmurs rubs or gallop Lungs: Clear to auscultation without signs of distress Abdomen: Soft nontender nondistended with normal active bowel sounds no voluntary guarding or rigidity or pulsatile mass Neck: Negative Spurling sign bilaterally Extremities: No asymmetric edema no pitting edema negative Homans' sign bilaterally MDM: Patient arrived to the ER slightly tachycardic and hypertensive otherwise with stable vitals. 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 Secondary to this a basic cardiac workup was obtained. D-dimer was negative going against DVT/PE or aortic dissection. Chest x-ray revealed no acute lung pathology such as pneumonia or pneumothorax. Initial troponin was 52 with a 2-hour delta downtrending to 42 going against acute coronary syndrome. Therefore this time based on his negative cardiac workup and low risk factors I do not feel there is need for inpatient testing and he is otherwise safe for discharge. History & Record Review Discussion w/independent historian: Patient and Significant other Lab Data Attestation: I reviewed the patient's lab results. Labs: Laboratory Results - last 24 hr 11/25/23 11/25/23 20:49 22:47 WBC 6.3 RBC 5.01 Hgb 16.0 Hct 45.7 MCV 91.2 MCH 31.9 MCHC 35.0 RDW Std Deviation 39.7 RDW Coeff of Roldan 11.9 Plt Count 182 MPV 10.4 Immature Gran % (Auto) 0.500 Neut % (Auto) 32.2 L Lymph % (Auto) 51.4 H Gooding % (Auto) 9.5 Eos % (Auto) 5.1 H Baso % (Auto) 1.3 H Absolute Neuts (auto) 2.0 Absolute Lymphs (auto) 3.24 Nucleated RBC % 0 D-Dimer Quant (PE/DVT) < 0.27 L Sodium 144 Potassium 3.6 Chloride 107 Carbon Dioxide 27.0 Anion Gap 10 BUN 11 Creatinine 1.01 Estim Creat Clear Calc 94.63 Est GFR (MDRD) Af Amer 99 Est GFR (MDRD) Non-Af 82 BUN/Creatinine Ratio 10.9 Glucose 163 H Calcium 9.0 Troponin I High Sens 52 42 Radiography Diagnostic Testing: Clinical Impression(s) from Imaging Studies Chest X-Ray 11/25/23 21:25 IMPRESSION: Normal x-ray examination of the chest. Electronically Signed: Evan Teran MD at 22:26 EST Reading Location ID and State: [facility] / [place] Tel , Service support , Chest x-ray as interpreted by the emergency medicine physician reveals no acute infiltrate pneumothorax or pleural effusion Discharge Plan Triage Chief Complaint: Chest Pain ED Midlevel Provider: Kendell Mejia ED Provider: Fletcher Zamora Dx/Rx/DC Orders Clinical Impression: Nonspecific chest pain, Hypertension Instructions: ED Chest Pain, Uncertain Cause Prescriptions: No Action losartan 100 mg tablet 100 mg PO DAILY Patient Comments: TAKE 1 TABLET BY MOUTH ONCE DAILY allopurinol 300 mg tablet 300 mg PO DAILY Patient Comments: TAKE 1 TABLET BY MOUTH ONCE DAILY WITH FOOD rosuvastatin 5 mg tablet 5 mg PO DAILY Patient Comments: TAKE 1 TABLET BY MOUTH EVERY DAY AT BEDTIME Primary Care Provider: Brenna Dobson Referrals: Brenna Dobson NP-C [Primary Care Provider] - Activity Restrictions/Additional Instructions: Your workup today revealed no signs of acute heart damage or pneumonia or blood clot. Follow-up with your family doctor for repeat evaluation and discuss outpatient testing. If you have any further concerns please return to the ER for repeat evaluation Disposition Disposition: Home, Self Care
[2023-11-25 22:00] VITALS: BP 143/96; PULSE 109; RESP 18; O2SAT 94
[2023-11-25 22:13] LABS: D-Dimer Quantitative (DVT/PE) < 0.27 FEU/ug/m (0.27-0.49)
[2023-11-25] MEDS: Mag Hydrox/Al Hydrox/Simeth 30 ML UDC PO (22:35)
[2023-11-25 22:47] LABS: Anion Gap 10 (5-15); BUN 11 mg/dL (7-18); BUN/Creat Ratio 10.9 RATIO (10-20); Chloride 107 mmol/L (98-107); Creatinine, Serum 1.01 mg/dL (0.70-1.30); EST Glomerular Filtration Rate 82 mL/min (>60); Est Glom Filt Rate - Afr Amer 99 mL/min (>60); Estimated Creatinine Clearance 94.63 ml/min; Glucose 163 mg/dL (74-106); Potassium 3.6 mmol/L (3.5-5.1); Sodium Level 144 mmol/L (136-145); Troponin-I HS (w/2H Reflex) 52 pg/mL (3.0-78.0)
[2023-11-25 23:00] VITALS: BP 131/88; PULSE 114; RESP 19; O2SAT 93
[2023-11-25 23:35] LABS: Reflex Troponin-HS? (from REC) Y
[2023-11-26] VITALS: BP 122/85; PULSE 111; RESP 17; O2SAT 93
[2023-11-26 00:05] LABS: Troponin-I HS 42 pg/mL (3.0-78.0)
[2023-11-26 00:31] VITALS: BP 135/87; PULSE 113; RESP 19; O2SAT 95
== END 2023-11-26 00:36 | disposition home or self-care (01) ==
PROVIDERS: Nurse Practitioner; Emergency Provider Emergency Medicine; PCP Nurse Practitioner Family; Visit Provider Emergency Medicine
DX: R07.9 Chest pain, unspecified (principal); E78.5 Hyperlipidemia, unspecified; I10 Essential (primary) hypertension; M10.9 Gout, unspecified; Z79.899 Other long term (current) drug therapy
CPT/HCPCS: 71045; 80048; 84484; 85025; 85379; 93005; 99285; A4216

== ENCOUNTER → 2023-12-17 | Outpatient (CLI) | payer OTHER, SELFPAY ==
--- OUTSIDE RECORDS SUMMARY | 2023-12-17 11:47 | XMS RPT_ITS | CCD ---
Author Name Unknown Address [email or web address] [place] [address] Organization [facility] Care Team Providers Care Clearance Representative Name Role Phone Nina Fuller Unavailable Charlotte [...] CNP Consulting Unavailable Brenna Dobson CNP Unavailable Brenna Dobson CNP Unavailable [phone] Nina Fuller Unavailable Logan Mar CMA [...] Facility 09-22-2022 08:03-0500 Body height 175.26 cm [facility] Work Phone: 09-22-2022 08:03-0500 Body mass index (BMI) [Ratio] 31.79 kg/m2 [facility] Work Phone: 09-22-2022 08:03-0500 Body surface area Derived from formula 2.13 m2 [facility] Work Phone: 09-22-2022 08:03-0500 Body temperature 97 [degF] [facility] Work Phone: 09-22-2022 08:03-0500 Body weight 97.64 kg [facility] Work Phone: 09-22-2022 08:03-0500 Diastolic blood pressure 82 mm[Hg] [facility] Work [...] Office outpatient visit 25 minutes Nina Fuller AGRICULTURE TEACHER Work Phone: [facility] Start: 04-01-2021 Review Nina Fuller AGRICULTURE TEACHER Work Phone: [facility] Start: 12-20-2020 End: 12-20-2020 Patient encounter procedure [facility] Start: 10-01-2020 End: 10-01-2020 Office outpatient visit 15 minutes Nina Fuller [facility] Start: 09-25-2020 End: 09-25-2020 Annotation/Addendum [facility] Start: 04-09-2020 End: 04-09-2020 Office [...] 12-06-2018 End: 12-06-2018 Annotation/Addendum [facility] Start: 11-29-2018 End: 11-29-2018 Office outpatient visit 25 minutes Nina [facility] Start: 07-26-2018 End: 07-26-2018 Office outpatient visit 25 minutes Nina Fuller [facility] Start: 05-01-2018 End: 05-01-2018 Office outpatient visit 25 minutes Nina Fuller [facility] Start: 04-19-2018 End: 04-19-2018 Office outpatient visit 15 minutes Nina Fuller [facility] Start: 12-28-2017 End: 12-28-2017 Office outpatient visit 25 minutes Nnia [facility] Start: 12-12-2017 End: 12-12-2017 Office outpatient new 30 minutes Nina Fuller [facility] Procedures Date Procedure Procedure Detail Performing Clinician Start: 08-21-2018 End: 08-21-2018 NCS and/or EMG Patient Comments: See Note; NOTES: [facility] Pulmonary Services/Neurology [address] [place] [address] MR#: [id number] Acct: [id number] Name: TRAY TRUJILLO Rep #: [id number] : 1970 48 From: Kaley Linton MD Referring Dr: Nina Fuller NP Status: REG CLI Ordering Dr: Date: Location: [facility] Sex: M C NCS [...] Linton Date Dictated: 08/21/181407 Date Transcribed: 08/21/181407 Fire Prevention Inspector: UMA Signed Nina Fuller Start: 05-01-2018 End: 05-01-2018 Wrist min 3 Views Comments: See Note; NOTES: [facility] Imaging Services [address] [place] [address] Wrist min 3 Views MR#: [id number] Acct: [id number] Name: TRAY TRUJILLO Rep #: [id number] : 1970 M 47 From: Abiodun Grace MD PCP: Nina Fuller NP Status: REG CLI Study: Wrist min 3 Views Date of Exam: 05/01/18 Exam# [id number] Ordering Dr: Nina Fuller STUDY: X-RAY - [...] Service support , CC: Nina Fuller NP Fire Prevention Inspector: Signed Nina Fuller Work Phone: Plan of [...] Payer Category Payer Private Health Insurance [id number] 1970 Unknown [id number] Private Health Insurance [id number] Unknown Unknown [id number] Social History Date Type Detail Facility Alcohol [...] Family Member Name Dates Details Maternal Grandfather Comments:[place] Status:Active Maternal Grandmother Comments:breast and thyroid cancer, throat cancer Status:Active Unknown Family Member Name Dates Details Maternal Grandfather Comments:AK Status:Active Maternal Grandmother Comments:breast and thyroid cancer, throat cancer Status:Active Unknown Family Member Name Dates Details Maternal Grandfather Comments:AK Status:Active Maternal Grandmother Comments:breast and thyroid cancer, throat cancer Status:Active Unknown Family Member Name Dates Details Maternal Grandfather Comments:AK Status:Active Maternal Grandmother Comments:breast and thyroid cancer, throat cancer Status:Active Unknown Family Member Name Dates Details Maternal Grandfather Comments:AK Status:Active Maternal Grandmother Comments:breast and thyroid cancer, throat cancer Status:Active Unknown Family Member Name Dates Details Maternal Grandfather Comments:AK Status:Active Maternal Grandmother Comments:breast and thyroid cancer, throat cancer Status:Active Unknown Family Member Name Dates Details Maternal Grandfather Comments:AK Status:Active Maternal Grandmother Comments:breast and thyroid cancer, throat cancer Status:Active Unknown Family Member Name Dates Details Maternal Grandfather Comments:AK Status:Active Maternal Grandmother Comments:breast and thyroid cancer, throat cancer Status:Active Unknown Family Member Name Dates Details Maternal Grandfather Comments:AK Status:Active Maternal Grandmother Comments:breast and thyroid cancer, throat cancer Status:Active Unknown Family Member Name Dates Details Maternal Grandfather Comments:AK Status:Active Maternal Grandmother Comments:breast and thyroid cancer, throat cancer Status:Active Unknown Family Member Name Dates Details Maternal Grandfather Comments:AK Status:Active Maternal Grandmother Comments:breast and thyroid cancer, throat cancer Status:Active Unknown Family Member Name Dates Details Maternal Grandfather Comments:AK Status:Active Maternal Grandmother Comments:breast and thyroid cancer, throat cancer Status:Active Unknown Family Member Name Dates Details Maternal Grandfather Comments:AK Status:Active Maternal Grandmother Comments:breast and thyroid cancer, throat cancer Status:Active Unknown Family Member Name Dates Details Maternal Grandfather Comments:AK Status:Active Maternal Grandmother Comments:breast and thyroid cancer, throat cancer Status:Active Unknown Family Member Name Dates Details Maternal Grandfather Comments:AK Status:Active Maternal Grandmother Comments:breast and thyroid cancer, throat cancer Status:Active Unknown Family Member Name Dates Details Maternal Grandfather Comments:AK Status:Active Maternal Grandmother Comments:breast and thyroid cancer, throat cancer Status:Active Unknown Family Member Name Dates Details Maternal Grandfather Comments:AK Status:Active Maternal Grandmother Comments:breast and thyroid cancer, throat cancer Status:Active Unknown Family Member Name Dates Details Maternal Grandfather Comments:AK Status:Active Maternal Grandmother Comments:breast and thyroid cancer, throat cancer Status:Active Unknown Family Member Name Dates Details Maternal Grandfather Comments:AK Status:Active Maternal Grandmother Comments:breast and thyroid cancer, [...] Informa tion Online using Patient Portal and [employer] Apps Indication:Nonsmoker Start:01-Oct-2020 Instruction Type:Patient Education How [...] tion Online using Patient Portal and 3rd [employer] Apps Indication:Nonsmoker Start:01-Oct-2020 Instruction Type:Patient Education How [...] BE BASED ON THE PRIMARY CLINICAL RECORDS. [employer] provides no warranty or guarantee of the accuracy or completeness of information in this document.
--- NOTE | 2023-12-17 15:15 | STRESSREP ---
Stress Test Report Exercise stress test. 53-year-old man with a history of chest pain Stress protocol: Resting EKG demonstrates normal sinus rhythm with a rate of 75 bpm resting blood pressure is 150/92 mmHg. The patient exercised according to the regular Ru protocol for a total duration of 6 minutes attaining a maximum heart rate of 173 bpm which was 103% of maximum predicted heart rate; the maximum workload was 7 metabolic equivalents. At rest there were no ST or T wave changes noted to suggest ischemia and at peak exercise upsloping ST changes only were noted which did not meet the criteria for ischemia. No clinical angina was noted the test was terminated due to the target heart rate being achieved/fatigue. The peak blood pressure was 192/96 mmHg. Rate-pressure product was 29,000. Conclusion: Exercise stress test with no EKG criteria for ischemia at a moderate workload. No clinical angina noted.
== END | disposition home or self-care (01) ==
LOC: CVS 11:31
PROVIDERS: PCP Nurse Practitioner Family; Referring Provider Nurse Practitioner Family; Visit Provider Nurse Practitioner Family
DX: R07.9 Chest pain, unspecified (principal)
CPT/HCPCS: 93017

== ENCOUNTER 2023-12-21 11:38 | Observation (INO) | payer OTHER, SELFPAY ==
[2023-12-20 09:01] VITALS: BMI 33.5
--- NOTE | 2023-12-21 10:12 | CL.D_ITS ---
Patient Name: FARIHA LALA Study Date: 12/21/2023 Performing: Nico Marroquin MD Ht: 67 inches 170.18 cm : 1970 Wt: 214 lbs 97.07 kg Age: 53 Gender: male BSA: 2.08 PROCEDURE(S) PERFORMED DC01-([id number])LHC/COR/LV CLINICAL PROFILE AND INDICATIONS Indications: Suspected CAD Heart Failure: None Stress/Imaging Date: 12/17/23 CAD Presentations: Unstable angina. CONCLUSIONS Severe single-vessel disease involving the left anterior descending artery in the proximal and mid segments. RECOMMENDATIONS Referred for immediate PCI DESCRIPTION OF PROCEDURE The patient arrived to the procedure lab. The risks and benefits of the procedure as well as a full description of our services here and current unavailability of surgical backup were fully explained to the patient and/or their significant other prior to the catheterization. The Timeout was completed, verifying the correct patient and procedure. The patient's procedural site was prepped and draped in the usual fashion. Local anesthetic was given subcutaneously to right radial region with Lidocaine 2%. Using a modified Seldinger technique, arterial access was obtained via the right radial artery, a 6Fr sheath was inserted. Right Coronary Artery selective angiography was then performed in multiple views using a 5 Fr. 4.0 [place] catheter. Left Coronary Artery selective angiography was performed in multiple views using a 5 Fr. 4.0 [place] catheter. Left Ventriculography was performed in CAMPOS projection using a 5 Fr. Pigtail catheter. LV to AO pullback pressures were then recorded. CORONARY ANGIOGRAPHY DOMINANCE: Right Dominant LEFT HEART ASSESSMENT Left Ventricular Ejection Fraction: by LV Gram 60 % Normal LV wall motion Normal Left Ventricular systolic function LEFT MAIN: Ostial 20% stenosis LEFT ANTERIOR DESCENDING ARTERY: Proximal 90% stenosis and a mid 80% stenosis and mild distal luminal irregularities. CIRCUMFLEX ARTERY: Mild luminal irregularities RIGHT CORONARY ARTERY: Mild luminal irregularities COMPLICATIONS PROCEDURE MEDICATIONS Versed 1 mg IV Fentanyl 50 mcg IV Versed 1 mg IV Versed 1 mg IV Oxygen: 2 L/min via nasal cannula Brilinta 180 mg PO @ 12/21/2023 09:45:46 Heparin given IA 12/21/2023 09:24:44 Verapamil 2.5mg, Ntg 100mcgs, 3000 units of Heparin given IA 12/21/2023 09:24:44 SUMMARY OF HEMODYNAMIC DATA Time AIR REST ECG 08:38:09 ECG 08:40:27 AO 137/93 (111) SA 09:39:25 LV 130/14, 20 09:47:42 LV 129/13, 22 09:47:49 LV 121/16, 23 09:48:35 LVp 129/14, 23 09:48:42 AOp 137/88 (109) 09:48:47 Signed By Nico Marroquin MD On 12/21/2023 10:11:09 Nico Marroquin MD
[2023-12-21 11:19] VITALS: BP 126/83; PULSE 77; RESP 16; TEMP 37.1; O2SAT 99; BMI 33.5
--- NOTE | 2023-12-21 11:51 | CASEMGMT ---
Social Work As per admitting RN, pt does not have LW/POA, declined further information at this time. [place]
--- OUTSIDE RECORDS SUMMARY | 2023-12-21 12:21 | XMS RPT_ITS | CCD ---
Author Name Unknown Address [address] [place] [address] Organization [facility] Care Team Providers Care Senior Underwriter Name Role Phone Nina Fuller Unavailable Charlotte [...] Dobson CNP Unavailable Brenna Dobson CNP Unavailable [phone] Nina Fuller Unavailable Logan Mar CMA [...] Facility 09-22-2022 08:03-0500 Body height 175.26 cm [facility]; [facility] Work Phone: 09-22-2022 08:03-0500 Body mass index (BMI) [Ratio] 31.79 kg/m2 [facility]; [facility] Work Phone: 09-22-2022 08:03-0500 Body surface area Derived from formula 2.13 m2 [facility]; [facility] Work Phone: 09-22-2022 08:03-0500 Body temperature 97 [degF] [facility] Comprehens[facility] e Internal [facility]; [facility] Work Phone: 09-22-2022 08:03-0500 Body weight 97.64 kg [facility]; [facility] Work Phone: 09-22-2022 08:03-0500 Diastolic blood pressure 82 mm[Hg] [facility]; [facility] [...] Office outpatient visit 25 minutes Nina Fuller WELT BEATER Work Phone: [facility] Start: 04-01-2021 Review Nina Fuller WELT BEATER Work Phone: [facility] Start: 12-20-2020 End: 12-20-2020 Patient encounter procedure Nina [facility] Start: 10-01-2020 End: 10-01-2020 Office outpatient visit 15 minutes Nina Fuller [facility] Start: 09-25-2020 End: 09-25-2020 Annotation/Addendum Nina Ayusholive Comprehensive Director Investment Banking al Medicine Start: 04-09-2020 End: 04-09-2020 Office [...] 12-06-2018 End: 12-06-2018 Annotation/Addendum Nina Ayusholive Comprehensive Director Investment Banking al Medicine Start: 11-29-2018 End: 11-29-2018 Office outpatient visit 25 minutes Nina Perry [facility] Start: 07-26-2018 End: 07-26-2018 Office outpatient visit 25 minutes Nina Fuller [facility] Start: 05-01-2018 End: 05-01-2018 Office outpatient visit 25 minutes Nina Fuller [facility] Start: 04-19-2018 End: 04-19-2018 Office outpatient visit 15 minutes Nina Fuller [facility] Start: 12-28-2017 End: 12-28-2017 Office outpatient visit 25 minutes Nina Perry [facility] Start: 12-12-2017 End: 12-12-2017 Office outpatient new 30 minutes Nina Fuller [facility] Internal Medicine Procedures Date Procedure Procedure Detail Performing Clinician Start: 08-21-2018 End: 08-21-2018 NCS and/or EMG Patient Comments: See Note; NOTES: [facility] Pulmonary Services/Neurology [address] [place] [address] MR#: [id number] Acct: [id number] Name: TRAY TRUJILLO Rep #: [id number] : 1970 48 From: Kaley Linton MD Referring Dr: Nina Fuller NP Status: REG CLI Ordering Dr: Date: Location: [facility] Sex: M C NCS and/or EMG Patient [...] Linton Date Dictated: 08/21/181407 Date Transcribed: 08/21/181407 Radio Interference Supervisor: UMA Signed Nina Fuller Start: 05-01-2018 End: 05-01-2018 Wrist min 3 Views Comments: See Note; NOTES: [facility] Imaging Services [address] [place] [address] Wrist min 3 Views MR#: [id number] Acct: [id number] Name: TRAY TRUJILLO Rep #: [id number] : 1970 M 47 From: Abiodun Grace MD PCP: Nina Fuller NP Status: REG CLI Study: Wrist min 3 Views Date of Exam: 05/01/18 Exam# [id number] Ordering Dr: Nina Fuller STUDY: X-RAY - [...] abnormality of the left wrist. Electronically Signed: Seyd Grace MD at 19:51 EDT , Service support , CC: Nina Fuller NP Radio Interference Supervisor: Signed Nina Fuller Work Phone: Plan of [...] Payer Category Payer Private Health Insurance [id number] 1970 Unknown [id number] Private Health Insurance [id number] Unknown Unknown [id number] Social History Date Type Detail Facility Alcohol [...] Family Member Name Dates Details Maternal Grandfather Comments:ID Status:Active Maternal Grandmother Comments:breast and thyroid cancer, throat cancer Status:Active Unknown Family Member Name Dates Details Maternal Grandfather Comments:ID Status:Active Maternal Grandmother Comments:breast and thyroid cancer, throat cancer Status:Active Unknown Family Member Name Dates Details Maternal Grandfather Comments:ID Status:Active Maternal Grandmother Comments:breast and thyroid cancer, throat cancer Status:Active Unknown Family Member Name Dates Details Maternal Grandfather Comments:ID Status:Active Maternal Grandmother Comments:breast and thyroid cancer, throat cancer Status:Active Unknown Family Member Name Dates Details Maternal Grandfather Comments:ID Status:Active Maternal Grandmother Comments:breast and thyroid cancer, throat cancer Status:Active Unknown Family Member Name Dates Details Maternal Grandfather Comments:ID Status:Active Maternal Grandmother Comments:breast and thyroid cancer, throat cancer Status:Active Unknown Family Member Name Dates Details Maternal Grandfather Comments:ID Status:Active Maternal Grandmother Comments:breast and thyroid cancer, throat cancer Status:Active Unknown Family Member Name Dates Details Maternal Grandfather Comments:ID Status:Active Maternal Grandmother Comments:breast and thyroid cancer, throat cancer Status:Active Unknown Family Member Name Dates Details Maternal Grandfather Comments:ID Status:Active Maternal Grandmother Comments:breast and thyroid cancer, throat cancer Status:Active Unknown Family Member Name Dates Details Maternal Grandfather Comments:ID Status:Active Maternal Grandmother Comments:breast and thyroid cancer, throat cancer Status:Active Unknown Family Member Name Dates Details Maternal Grandfather Comments:ID Status:Active Maternal Grandmother Comments:breast and thyroid cancer, throat cancer Status:Active Unknown Family Member Name Dates Details Maternal Grandfather Comments:ID Status:Active Maternal Grandmother Comments:breast and thyroid cancer, throat cancer Status:Active Unknown Family Member Name Dates Details Maternal Grandfather Comments:ID Status:Active Maternal Grandmother Comments:breast and thyroid cancer, throat cancer Status:Active Unknown Family Member Name Dates Details Maternal Grandfather Comments:ID Status:Active Maternal Grandmother Comments:breast and thyroid cancer, throat cancer Status:Active Unknown Family Member Name Dates Details Maternal Grandfather Comments:ID Status:Active Maternal Grandmother Comments:breast and thyroid cancer, throat cancer Status:Active Unknown Family Member Name Dates Details Maternal Grandfather Comments:ID Status:Active Maternal Grandmother Comments:breast and thyroid cancer, throat cancer Status:Active Unknown Family Member Name Dates Details Maternal Grandfather Comments:ID Status:Active Maternal Grandmother Comments:breast and thyroid cancer, throat cancer Status:Active Unknown Family Member Name Dates Details Maternal Grandfather Comments:ID Status:Active Maternal Grandmother Comments:breast and thyroid cancer, throat cancer Status:Active Unknown Family Member Name Dates Details Maternal Grandfather Comments:ID Status:Active Maternal Grandmother Comments:breast and thyroid cancer, [...] Informa tion Online using Patient Portal and [employer] Apps Indication:Nonsmoker Start:01-Oct-2020 Instruction Type:Patient Education How [...] tion Online using Patient Portal and 3rd [employer] Party Apps Indication:Nonsmoker Start:01-Oct-2020 Instruction Type:Patient Education [...] BE BASED ON THE PRIMARY CLINICAL RECORDS. [employer] provides no warranty or guarantee of the accuracy or completeness of information in this document.
[2023-12-21] MEDS: 0.9% Normal Saline (1000mL) 1,000 ML 80 ML IV (12:36)
--- OUTSIDE RECORDS SUMMARY | 2023-12-21 12:48 | XMS RPT_ITS | CCD ---
Author Name Unknown Address [address] [place] [address] Organization [facility] Care Team Providers Care Solar Sales Manager Name Role Phone Nina Fuller Unavailable Charlotte Kenny Unavailable Unavailable Unavailable Unavailable Nina Fulelr Unavailable Debbie Quiros Unavailable Unavailable Unavailable Unavailable Gustavo Pulido Unavailable Unavailable Gustavo Mares Unavailable Unavailable Corey Maher Unavailable Nina Fuller CNP Unavailable Dr. Corey Maher Unavailable Gustavo Mares LPN Unavailable Unavailable Unavailable Unavailable Nina Fuller Unavailable Nina Fuller Referring Unavailable Brenna Dobson CNP Attending Unavailable Brenna Dobson CNP Consulting Unavailable Brenna Dobson CNP Unavailable Brenna Dobson CNP Unavailable [phone] Nina Fuller Unavailable Logan Mar CMA [...] Facility 09-22-2022 08:03-0500 Body height 175.26 cm [facility]; [facility] Work Phone: 09-22-2022 08:03-0500 Body mass index (BMI) [Ratio] 31.79 kg/m2 [facility]; [facility] Work Phone: 09-22-2022 08:03-0500 Body surface area Derived from formula 2.13 m2 [facility]; [facility] Work Phone: 09-22-2022 08:03-0500 Body temperature 97 [degF] [facility] Comprehensiv e Internal Medicine; [facility] Work Phone: 09-22-2022 08:03-0500 Body weight 97.64 kg [facility]; [facility] Work Phone: 09-22-2022 08:03-0500 Diastolic blood pressure 82 mm[Hg] [facility]; [facility] Work [...] Office outpatient visit 25 minutes Nina Fuller STORAGE MANAGER Work Phone: [facility] Start: 04-01-2021 Review Nina Fuller STORAGE MANAGER Work Phone: [facility] Start: 12-20-2020 End: 12-20-2020 Patient encounter procedure Nina Perry [facility] Start: 10-01-2020 End: 10-01-2020 Office outpatient visit 15 minutes Nina Fuller [facility] Start: 09-25-2020 End: 09-25-2020 Annotation/Addendum Nina Ayusholive Comprehensive Gm Video al Medicine Start: 04-09-2020 End: 04-09-2020 Office [...] 12-06-2018 End: 12-06-2018 Annotation/Addendum Nina Ayusholive [facility] Gm Video al Medicine Start: 11-29-2018 End: 11-29-2018 Office outpatient visit 25 minutes Nina Perry [facility] Start: 07-26-2018 End: 07-26-2018 Office outpatient visit 25 minutes Nina Fuller [facility] Start: 05-01-2018 End: 05-01-2018 Office outpatient visit 25 minutes Nina Fuller [facility] Start: 04-19-2018 End: 04-19-2018 Office outpatient visit 15 minutes Nina Fuller [facility] Start: 12-28-2017 End: 12-28-2017 Office outpatient visit 25 minutes Nina Perry [facility] Start: 12-12-2017 End: 12-12-2017 Office outpatient new 30 minutes Nina Fuller [facility] Procedures Date Procedure Procedure Detail Performing Clinician Start: 08-21-2018 End: 08-21-2018 NCS and/or EMG Patient Comments: See Note; NOTES: [facility] Pulmonary Services/Neurology [address] [place] [address] MR#: [id number] Acct: [id number] Name: TRAY TRUJILLO Rep #: [id number] : 1970 48 From: Kaley Linton MD Referring Dr: Nina Fuller NP Status: REG CLI Ordering Dr: Date: Location: [facility] Sex: M C NCS and/or EMG [...] Linton Date Dictated: 08/21/181407 Date Transcribed: 08/21/181407 Gristmiller: UMA Signed Nina Fuller Start: 05-01-2018 End: 05-01-2018 Wrist min 3 Views Comments: See Note; NOTES: [facility] Imaging Services [address] [place] [address] Wrist min 3 Views MR#: [id number] Acct: [id number] Name: TRAY TRUJILLO Rep #: [id number] : 1970 M 47 From: Abiodun Grace MD PCP: Nina Fuller NP Status: REG CLI Study: Wrist min 3 Views Date of Exam: 05/01/18 Exam# [id number] Ordering Dr: Nina Fuller STUDY: X-RAY - [...] Service support , CC: Nina Fuller NP Gristmiller: Signed Nina Fuller Work Phone: Plan of [...] Payer Category Payer Private Health Insurance [id number] 1970 Unknown [id number] Private Health Insurance [id number] Unknown Unknown [id number] Social History Date Type Detail Facility Alcohol [...] Informa tion Online using Patient Portal and [employer] Apps Indication:Nonsmoker Start:01-Oct-2020 Instruction Type:Patient Education How [...] tion Online using Patient Portal and [employer] Apps Indication:Nonsmoker Start:01-Oct-2020 Instruction Type:Patient Education How [...] BE BASED ON THE PRIMARY CLINICAL RECORDS. [employer]. provides no warranty or guarantee of the accuracy or completeness of information in this document.
--- NOTE | 2023-12-21 13:34 | CRPHASE1_ITS ---
Patient Communication Patient Information PHII Cardiac Rehab Discussed with Patient:: Yes Guide to Cardiac Rehab Given to Patient:: Yes Cardiac Rehab Facility Choice List Given to Patient:: Yes Communication to Cardiac Rehab Choice Program [facility] CR PHII:: Communication Given to CR Manufacturing Controls Engineer:: Grayson Azevedo Phase II Cardiac Rehab:: Yes Sessions:: 36 sessions - 3 days/wk, 12 weeks Cardiac Rehabilitation Info Program Information Cardiac Rehabilitation Program Information: Cardiac Rehab The cardiac rehab team at [facility] consists of highly skilled exercise physiologists, nurses, respiratory therapists and physicians working together with you. Our purpose is to help you have a full recovery and achieve the goals you set for yourself. Over the years many of our patients have returned to activities they assumed they would never do again! We can help restore your confidence and motivation to make lifestyle changes that can have a significant impact on your health and quality of life! We can help answer questions and concerns you may have about exercise, lifestyle, medications, diet, stress and anxiety which are common following a hospitalization. WE monitor ECG and vital signs during exercise and discuss your progress with you and report to your physician(s). Cardiac Rehab is proven to help reduce readmissions, improve functional capacity and lower recurrence of problems with your heart. Our Cardiac Rehab program is Certified by the [place] [employer] of Cardio-Vascular and Pulmonary Rehabilitation (AACVPR) and Accredited by the [place] [employer] through our [facility]. You can contact us at . We invite you to call us with your questions or to get started in our program. If you have other questions or concerns be sure to ask your physician/provider during your follow-up visit. WE look forward to seeing you!
--- NOTE | 2023-12-21 13:36 | CRPH1.INSTRU ---
General Education Discussed with Patient CAD and cardiac anatomy and function:: Patient communicates acknowledgment and Family communicates acknowledgment Explanation of diagnoses and procedures:: Patient communicates acknowledgment and Family communicates acknowledgment Sign/Symptoms of ND:: Patient communicates acknowledgment and Family communicates acknowledgment Antiplatelet therapy: Patient communicates acknowledgment and Family communicates acknowledgment Proper use of NTG-SL: Patient communicates acknowledgment and Family communicates acknowledgment Emergency procedures and activation of EMS: Patient communicates acknowledgment and Family communicates acknowledgment Compliance of all prescribed medications: Patient communicates acknowledgment and Family communicates acknowledgment Dyslipidemia Risk Factors Patient Dyslipidemia Risk Factors Are:: Total Cholesterol, Triglycerides, HDL and LDL Recommendations Recommendations Include:: Lipid profile not available Response Code Dyslipidemia Response Code:: Patient communicates acknowledgment and Family communicates acknowledgment Overweight/Obesity Risk Factors Patient Overweight/Obesity Risk Factors Are:: Obesity - > or = 30 Recommendations Recommendations Include:: Weight loss of 5-10%, Reduced calorie diet and Exercise 5-7 times/week Response Code Overweight/Obesity:: Patient communicates acknowledgment and Family communicates acknowledgment Hypertension Recommendations Recommendations Include:: Maintain BP <130/85 Response Code Hypertension:: Patient communicates acknowledgment and Family communicates acknowledgment Heart Disease Risk Factors Patient Heart Disease Risk Factors Are:: Family history of heart disease < 65 years old and Previous cardiac event Recommendations Recommendations Include:: Educated family members of their risk and Educated family members of importance of prevention of heart disease Response Code Heart Disease Response Code:: Patient communicates acknowledgment Sedentary Risk Factors Patient Sedentary Risk Factors Are:: Lack of regular exercise Recommendations Recommendations Include:: Aerobic exercise 5-7 times/week for 20-30 minutes continuously, Benefits of regular exercise, Discussed home walking program and Monitored Outpatient Cardiac Rehab Response Code Sedentary Response Code:: Patient communicates acknowledgment
--- NOTE | 2023-12-21 13:48 | EKG12_ITS ---
Test Reason : PCI Blood Pressure : / mmHG Vent. Rate : 085 BPM Atrial Rate : 085 BPM P-R Int : 138 ms QRS Dur : 096 ms QT Int : 370 ms P-R-T Axes : 044 017 055 degrees QTc Int : 440 ms Normal sinus rhythm T wave abnormality, consider anterolateral ischemia Abnormal ECG Confirmed by Isaac Perez ([id number]), school photograph editor LUIS MANUEL NIETO ([id number]) on 12/25/2023 11:42:00 AM Referred By: Nico Marroquin Confirmed By:Isaac Perez
[2023-12-21 13:53] VITALS: BP 127/67; PULSE 89; RESP 16; TEMP 37.1; O2SAT 98
--- NOTE | 2023-12-21 15:08 | PCM.DC ---
Discharge Instructions Diet Discharge Diet: Low fat / Low cholesterol Activity Discharge Activity: Return to Normal Activity Return to work on:: 12/25/23 Lifting Restrictions: nothing greather than 10 lbs for 3 days Dressing / Incision Call your doctor if your incision/area has: Continuous Slow Oozing, Sudden Increased Bleeding, Increased Pain/ Swelling, Increased Redness and Swelling at the incision site Follow Up Care Test Results: Test results from this visit will be discussed in further detail at your follow-up appointment, if applicable. Discharge Plan Admission Admit Date/Time: 12/21/23 11:38 Attending Provider: Nico Marroquin Primary Care Provider: Brenna Dobson Instructions Additional Instructions / Restrictions: You were started on Brilinta which is an antiarrhythmic. This will be keeping your stent open. You cannot stop this for any time for at least 1 year. If this is too costly please let our office know and we could switch her over to a generic. Please keep your follow-up in the office as scheduled. Discharge Orders/Prescriptions Prescriptions: New Brilinta 90 mg Tablet 90 mg PO BID Qty: 60 11RF Continued pantoprazole 40 mg tablet,delayed release (DR/EC) 40 mg PO DAILY nitroglycerin 0.4 mg tablet, sublingual 0.4 mg sublingual Q5-15M PRN (Reason: chest pain) Rx Instructions: do not exceed 3 doses per episode aspirin [Adult Low Dose Aspirin] 81 mg tablet,delayed release (DR/EC) 81 mg PO QDAY Qty: 90 3RF hydrochlorothiazide 25 mg tablet 25 mg PO DAILY Qty: 90 3RF tamsulosin 0.4 mg capsule 0.4 mg PO DAILY Qty: 30 11RF losartan 100 mg tablet 100 mg PO DAILY Patient Comments: TAKE 1 TABLET BY MOUTH ONCE DAILY allopurinol 300 mg tablet 300 mg PO DAILY Patient Comments: TAKE 1 TABLET BY MOUTH ONCE DAILY WITH FOOD rosuvastatin 5 mg tablet 5 mg PO DAILY Patient Comments: TAKE 1 TABLET BY MOUTH EVERY DAY AT BEDTIME Referrals / Follow Up: Brenna Dobson, DANGELO-C [Primary Care Provider] - Disposition Disposition (needs filled in before D/C Order can be placed): Home, Self Care
[2023-12-21] MEDS: Tamsulosin HCl 0.4 MG Capsule 0.400000000000000022 MG PO (17:54)
[2023-12-21 21:09] VITALS: BP 139/92; PULSE 86; RESP 16; TEMP 36.9; O2SAT 96
[2023-12-21] MEDS: TICAGRELOR 90 MG TABLET PO (21:11)
[2023-12-22 03:00] VITALS: BP 145/95; PULSE 95; RESP 16; TEMP 36.7; O2SAT 98
[2023-12-22 08:07] LABS: Hematocrit 45.8 % (40-54); Hemoglobin 15.8 g/dL (13.0-16.5); Mean Corp Hgb Conc 34.5 g/dL (32-36); Mean Corpuscular Hgb 31.7 pg (27.0-32.0); Mean Platelet Vol. 10.2 fl (6.2-12.0); Platelet Count 159 K/mm3 (150-450); RBC Distribution Width CV 11.6 % (11.6-14.6); RBC Distribution Width SD 38.9 fl (35.1-43.9); Red Blood Count 4.98 M/mm3 (4.6-6.2); White Blood Count 5.3 K/mm3 (4.4-11.0)
[2023-12-22 08:09] VITALS: BP 151/81; PULSE 81; RESP 18; TEMP 36.7; O2SAT 97
[2023-12-22] MEDS: Allopurinol 300 MG Tablet PO (08:11)
[2023-12-22] MEDS: TICAGRELOR 90 MG TABLET PO (08:11)
[2023-12-22] MEDS: Aspirin E.C. 81 MG Tablet PO (08:11)
[2023-12-22] MEDS: Pantoprazole Sodium 40 MG Tablet PO (08:11)
[2023-12-22] MEDS: Atorvastatin Calcium 40 MG Tablet PO (08:12)
[2023-12-22] MEDS: hydroCHLOROthiazide 25 MG Tablet PO (08:12)
[2023-12-22] MEDS: Losartan Potassium 100 MG Tablet PO (08:12)
[2023-12-22 08:15] VITALS: O2SAT 96
[2023-12-22 08:36] LABS: ALB/GLOB Ratio 1.3 RATIO (0.9-2.4); AST(SGOT) 37 U/L (15-37); Alanine Aminotransfer ALT/SGPT 63 U/L (16-61); Albumin, Serum 3.9 g/dL (3.2-5.0); Alkaline Phosphatase 59 U/L (45-117); Anion Gap 5 (5-15); BUN 18 mg/dL (7-18); Calcium,Total 9.3 mg/dL (8.5-10.1); Chloride 106 mmol/L (98-107); Creatinine, Serum 0.75 mg/dL (0.70-1.30); EST Glomerular Filtration Rate 115 mL/min (>60); Est Glom Filt Rate - Afr Amer 140 mL/min (>60); Estimated Creatinine Clearance 126.45 ml/min; Globulin 3.1 g/dL (2.2-4.2); Glucose 127 mg/dL (74-106); Potassium 3.7 mmol/L (3.5-5.1); Sodium Level 137 mmol/L (136-145)
--- NOTE | 2023-12-22 09:51 | CASEMGMT ---
RN CM DC Planning note: Noted DC orders and new Brilinta RX. Call placed to [facility] who confirmed the maguire as 25$. Rosanne Wood MSN, RN, CCM
--- NOTE | 2023-12-22 10:00 | PN.CARD_ITS ---
Subjective Subjective Patient underwent cath and PCI of the LAD with a drug-eluting stent 12/21/2023. He is aerobically active in the room he denies any anginal symptoms. His right wrist is healing well. Objective Data Vital Signs: Vital Signs Temp Pulse Resp BP Pulse Ox O2 Del Method 98.1 F 81 18 151/81 H 97 Room Air 12/22/23 08:09 12/22/23 08:09 12/22/23 08:09 12/22/23 08:09 12/22/23 08:09 12/22/23 08:24 Oxygen Delivery Method Room Air Weight: 214 lb Body Mass Index (BMI) 33.5 Intake & Output: Intake and Output for Last 24 Hours 12/20/23 12/21/23 12/22/23 23:59 23:59 23:59 Intake Total 924 / 924 Balance 924 / 924 Lab / Micro Data Attestation: I reviewed the patient's lab results. 12/22/23 07:18 12/22/23 07:18 Labs: Laboratory Results - last 24 hr 12/22/23 07:18: WBC 5.3, RBC 4.98, Hgb 15.8, Hct 45.8, MCV 92.0, MCH 31.7, MCHC 34.5, RDW Std Deviation 38.9, RDW Coeff of [place]old[place] 11.6, Plt Count 159, MPV 10.2, Sodium 137, Potassium 3.7, Chloride 106, Carbon Dioxide 26.0, Anion Gap 5, BUN 18, Creatinine 0.75, Estim Creat Clear Calc 126.45, Est GFR (MDRD) Af Amer 140, Est GFR (MDRD) Non-Af 115, BUN/Creatinine Ratio 24.0 H, Glucose 127 H, Calcium 9.3, Total Bilirubin 0.90, AST 37, ALT 63 H, Alkaline Phosphatase 59, Total Protein 7.0, Albumin 3.9, Globulin 3.1, Albumin/Globulin Ratio 1.3 Cardiology Labs/Tests 12/22/23 07:18: WBC 5.3, RBC 4.98, Hgb 15.8, Hct 45.8, MCV 92.0, MCH 31.7, MCHC 34.5, Plt Count 159, MPV 10.2, Sodium 137, Potassium 3.7, Chloride 106, Carbon Dioxide 26.0, Anion Gap 5, BUN 18, Creatinine 0.75, Est GFR (MDRD) Af Amer 140, Est GFR (MDRD) Non-Af 115, BUN/Creatinine Ratio 24.0 H, Glucose 127 H, Calcium 9.3, Total Bilirubin 0.90 Rhythm: EKG: ECHO: Stress Test: Cardiac Cath: PCI: CT Surgery: Holter monitor: EPS: PPM: CXR: Chest CT Scan: Physical Exam Const oriented x3 HEENT normocephalic Eyes EOMs intact bilaterally Neck no JVD Chest inspection of chest normal Resp normal respiratory effort Cardio Peripheral Pulses: radial pulses present right (No hematoma.) Assessment & Plan Assessment/Plan (1) CAD (coronary artery disease): QUALIFIERS: Coronary Disease-Associated Artery/Lesion type: burns [place] artery [place] vs. transplanted heart: burns [place] heart PLAN: The patient tolerated his intervention to the LAD without incident. He will be discharged home today. He will follow-up in office in 1 to 2 weeks. 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 I went over the mandatory nature that he stay on his Brilinta and aspirin uninterrupted for any reason for 1 year. Charges/Coding Visit Charges Inpatient E&M: 37064 Disch Hosp
--- NOTE | 2023-12-22 10:00 | EKG12_ITS ---
Test Reason : AM EKG Blood Pressure : / mmHG Vent. Rate : 079 BPM Atrial Rate : 079 BPM P-R Int : 136 ms QRS Dur : 102 ms QT Int : 368 ms P-R-T Axes : 044 040 018 degrees QTc Int : 421 ms Normal sinus rhythm T wave abnormality, consider anterolateral ischemia Abnormal ECG When compared with ECG of 21-DEC-2023 13:34, MANUAL COMPARISON REQUIRED, DATA IS UNCONFIRMED Confirmed by Isaac Perez ([id number]), city editor LUIS MANUEL NIETO ([id number]) on 12/25/2023 11:39:55 AM Referred By: Nico Marroquin Confirmed By:Isaac Perez
--- NOTE | 2024-01-01 14:25 | CL.I_ITS ---
Patient Name: FARIHA LALA Study Date: 12/21/2023 Performing: Timo Azevedo MD Ht: 67 inches 170.18 cm : 1970 Wt: 214.3 lbs 97.07 kg Age: 53 Gender: male BSA: 2.08 PROCEDURE(S) PERFORMED IC12-(64082/C9600)RUBÉN W/WO PTCA, SINGLE CORONARY ARTERY CLINICAL PROFILE AND CO-MORBIDITIES Indications: Suspected CAD Heart Failure: None Stress/Imaging Date: 12/17/23 CAD Presentations: Unstable angina. CONCLUSIONS Successful PCI of LAD with RUBÉN RECOMMENDATIONS DESCRIPTION OF PROCEDURE The patient arrived to the procedure lab. The risks and benefits of the procedure as well as a full description of our services here and current unavailability of surgical backup were fully explained to the patient and/or their significant other prior to the catheterization. The Timeout was completed, verifying the correct patient and procedure. The patient's procedural site was prepped and draped in the usual fashion. Local anesthetic was given subcutaneously to right radial region with Lidocaine 2% Using a modified Seldinger technique,arterial access was obtained via the right radial artery, a 6Fr sheath was inserted. Right Coronary Artery selective angiography was then performed in multiple views using a 5 Fr. 4.0 [place] catheter. Left Coronary Artery selective angiography was performed in multiple views using a 5 Fr. 4.0 [place] catheter. Left Ventriculography was performed in CAMPOS projection using a 5 Fr. Pigtail catheter. LV to AO pullback pressures were then recorded. JL 3.5 Guide catheter was inserted and engaged into the LCA. [employer] [place] Guide wire was advanced to the LAD. Emerge 2.25 x 12 Balloon catheter was inserted. Balloon catheter was advanced across lesion in the LAD, mid. PTCA balloon inflated at 6 atms for 21 secs. PTCA balloon inflated at 6 atms for 7 secs. [place]er 2.5 x 18 Drug Eluting stent was inserted. Drug Eluting stent was advanced across the lesion in the LAD, mid. Angiogram performed post stent deployment. Emilia Miner 2.75 x 12 Drug Eluting stent was inserted. Drug Eluting stent was advanced across the lesion in the LAD, mid. Angiogram performed pre stent deployment. Angiogram performed post stent deployment. The arterial sheath was pulled and a TR Band was applied for hemostasis INTERVENTION INFORMATION LESION SITE: LAD (Mid) Lesion Complexity: High/C, chronic total occlusion: No, lesion at bifurcation: No, thrombus present: No, lesion length: 20 mm, culprit lesion: Yes, Previously treated lesion: No Pre Stenosis: 90 % Pre intervention ANNEL flow: 3 PROCEDURE: Drug Eluting Stent with pre dilatation. Post Stenosis: 0 % Post intervention ANNEL flow: 3 Lesion Devices: Medtronic 6 Fr JL3.5 100cm Guide Catheter Issa .014 190cm [employer] [place] Straight Andre Sci EMERGE MR 2.25x12 BALLOON Medtronic 2.50 x 18 EMILIA FRONTIER RUBÉN Medtronic 2.75 x 12 EMILIA FRONTIER RUBÉN COMPLICATIONS No Complications PROCEDURE MEDICATIONS Versed 1 mg IV Fentanyl 50 mcg IV Versed 1 mg IV Versed 1 mg IV Oxygen: 2 L/min via nasal cannula Brilinta 180 mg PO @ 12/21/2023 09:45:46 Heparin given IA 12/21/2023 09:24:44 Heparin 7000 unit(s) IV 12/21/2023 10:46:40 Verapamil 2.5mg, Ntg 100mcgs, 3000 units of Heparin given IA 12/21/2023 09:24:44 SUMMARY OF HEMODYNAMIC DATA Time AIR REST ECG 08:38:09 ECG 08:40:27 AO 137/93 (111) SA 09:39:25 LV 130/14, 20 09:47:42 LV 129/13, 22 09:47:49 LV 121/16, 23 09:48:35 LVp 129/14, 23 09:48:42 AOp 137/88 (109) 09:48:47 AIR REST 11:08:17 Signed By Timo Azevedo MD On 12/26/2023 11:38:37 Timo Azevedo MD
== END 2023-12-22 11:57 | disposition home or self-care (01) ==
LOC: CLSP 11:52 → PCU 11:53
PROVIDERS: Admitting Provider Specialist; PCP Nurse Practitioner Family; Referring Provider Internal Medicine Cardiovascular Disease; Visit Provider Internal Medicine Cardiovascular Disease
DX: I25.110 Atherosclerotic heart disease of native coronary artery with unstable angina pectoris (principal); I10 Essential (primary) hypertension; Z79.899 Other long term (current) drug therapy; Z79.82 Long term (current) use of aspirin; K21.9 Gastro-esophageal reflux disease without esophagitis; E78.00 Pure hypercholesterolemia, unspecified; M10.9 Gout, unspecified
CPT/HCPCS: 36415; 80053; 85027; 92928; 93005; 93458; 96360; 96361; 99152; 99153; 99221; J7030; J7040; C1725; C1769; C1874; C1887; C1894; C9600; G0378; Q9967

== ENCOUNTER → 2023-12-31 | Outpatient (CLI) | payer OTHER, SELFPAY ==
[2024-01-01 13:08] LABS: PSA, Free 0.49 ng/mL; PSA, Free % 13.8 % (.)
== END | disposition home or self-care (01) ==
PROVIDERS: PCP Nurse Practitioner Family; Referring Provider Urology; Visit Provider Urology
DX: R97.20 Elevated prostate specific antigen [PSA] (principal)
CPT/HCPCS: 36415; 84153; 84154

== ENCOUNTER 2024-05-20 00:11 | Emergency (ER) | payer OTHER, SELFPAY ==
[2024-05-20] VITALS (32 sets, daily range): BP systolic 85–145; BP diastolic 64–105; PULSE 82–146; RESP 15–114; TEMP 36.2–36.9; O2SAT 17–99; BMI 33.7
--- NOTE | 2024-05-20 00:17 | RAD_ITS ---
INDICATION: injury/pain EXAMINATION/TECHNIQUE: X-RAY - LEFT XR Shoulder Min 2 Views COMPARISON: None. FINDINGS: SOFT TISSUES: Unremarkable. BONES/JOINTS: No fracture or dislocation. Mild degenerative changes of the acromioclavicular joint. No erosive changes. RAD/Shoulder min 2 Views IMPRESSION: No fracture or dislocation. Electronically Signed: Evan Butts DO at 1:17 EDT ,
--- NOTE | 2024-05-20 00:17 | RAD_ITS ---
INDICATION: injury/pain EXAMINATION/TECHNIQUE: X-RAY - XR Ribs Unilateral W/ PA Chest Min 3 Views COMPARISON: 11/25/2023 chest x-ray. FINDINGS: SOFT TISSUES: Unremarkable. BONES: No evidence of a fracture. VISUALIZED LUNGS: Clear. No pneumothorax. VISUALIZED MEDIASTINUM: Unremarkable. RAD/Ribs Uni Min 3V w/PA Chest IMPRESSION: No evidence of a left rib fracture. Electronically Signed: Evan Butts DO at 1:19 EDT ,
--- NOTE | 2024-05-20 00:18 | ED.VIS.FALL ---
HPI HPI - Fall History of Present Illness Chief Complaint: Fall Informant: patient and spouse/S.O. Narrative Narrative: Patient presents soon after catching his toe and falling while going up steps, falling against his left shoulder and rib cage. The majority of his pain is in the chest wall and rib cage, going all the way down posteriorly to the very last rib. Denies any hematuria. No abdominal pain. No nausea or vomiting. No head injury or neck pain. Other than his left shoulder which he points mostly to the trapezius between the clavicle and the scapula, he has no other extremity pain or numbness/tingling. No anticoagulants, he takes aspirin and Brilinta due to a coronary stent that was placed. [facility] Medical History Impaired fasting glucose Elevated PSA GERD (gastroesophageal reflux disease) Chest pain Gout Hypercholesteremia Hypertension Home Medications ?Medication ?Instructions ?Recorded ?Last Taken ?Type allopurinol 300 mg tablet 300 mg PO DAILY gout 11/25/23 12/21/23 History losartan 100 mg tablet 100 mg PO DAILY blood pressure 11/25/23 12/21/23 History rosuvastatin 5 mg tablet 5 mg PO DAILY cholesterol 11/25/23 12/21/23 History aspirin 81 mg tablet,delayed 81 mg PO QDAY [place] #90 tabs 12/19/23 12/21/23 Rx release (Adult Low Dose Aspirin) hydrochlorothiazide 25 mg tablet 25 mg PO DAILY diuretic #90 tabs 12/19/23 Unknown Rx nitroglycerin 0.4 mg sublingual 0.4 mg sublingual Q5-15M PRN chest 12/19/23 Unknown History tablet pain pantoprazole 40 mg tablet,delayed 40 mg PO DAILY reflux 12/19/23 12/21/23 History release tamsulosin 0.4 mg capsule 0.4 mg PO DAILY prostate #30 caps 12/19/23 Unknown Rx ticagrelor 90 mg tablet (Brilinta) 90 mg PO BID #60 tabs 12/21/23 Unknown Rx oxycodone-acetaminophen 5 mg-325 1 tab PO Q6H PRN PRN pain 4 days 05/20/24 Unknown Rx mg tablet #15 TABLETS Allergy/AdvReac Type Severity Reaction Status Date / Time No Known Allergies Allergy Verified 05/20/24 00:14 Family History Grandfather Myocardial infarction Grandmother Breast cancer Thyroid cancer Throat cancer Surgical History Stented coronary artery (12/21/23) Social History Smoking Status: Never smoker alcohol intake: current alcohol intake frequency: 3 or more drinks per day Alcohol type: beer ROS ROS ED Constitutional Constitutional ED: Denies chills or fever(s) Eyes Eyes: Denies change in vision or diplopia ENT ENT ED: Denies rhinorrhea or sore throat Cardiovascular Cardiovascular: Denies chest pain or palpitations Respiratory/Chest Respiratory/Chest: Reports as per HPI, dyspnea and other Details: left lat and posterior ribcage pain ; Denies cough Gastrointestinal Gastrointestinal: Denies abdominal pain, diarrhea, nausea or vomiting Genitourinary Genitourinary ED: Denies dysuria or hematuria Musculoskeletal Musculoskeletal: Reports as per HPI, back pain and extremity pain; Denies neck pain Integumentary Denies abscess or rash Neurologic Neurologic: Denies headache(s), paresthesias or weakness Psychiatric Psychiatric: Denies anxiety or suicidal thoughts EXAM Physical Exam Const Vital Signs: 05/20/24 00:11 05/20/24 00:11 Temperature 98.4 F Temperature Source Oral Pulse Rate 93 Respiratory Rate 16 Respiratory Effort Short of Breath Respiratory Depth Normal Respiratory Pattern Normal Blood Pressure 125/105 H Blood Pressure Mean 111 Pulse Ox 97 Oxygen Delivery Method Room Air Positive well nourished and well developed Constitutional Narrative: In mild painful distress, keenly alert GCS 15, standing and pacing a little. General Appearance ED: well developed and NAD HEENT Reports moist mucous membranes normocephalic and atraumatic Eyes PERRL and EOMs intact bilaterally Neck full ROM and supple Chest Wall Chest Narrative: Tender throughout left axilla all the way down more posterior aspect of all of the left rib cage. No crepitance or step-off palpable or flail, or subcutaneous emphysema palpable. Resp normal respiratory effort and clear to auscultation bilaterally Resp Narrative: Splinting with deep inspiration. Equal breath sounds present bilaterally. Cardio regular rate, regular rhythm and no murmurs Rate: Negative for tachycardic GI non-tender and non-distended Auscultation: normoactive bowel sounds Palpation: soft Back/Spine no CVA tenderness General Back: other FROM Extremity normal to inspection Extremity Narrative: Tenderness in the left proximal humerus, no deformity. Good range of motion but with pain. No clavicle or acromioclavicular tenderness. Otherwise extremity exam is normal and benign. General Extremety ED: Yes tenderness; Negative for edema or pulses abnormal General Extremity: Negative for edema or pulses abnormal Neuro oriented x3, CN's II-XII intact bilaterally and no sensory deficits noted Sensorium / Orientation: awake and alert Motor Exam: strength 5/5 throughout Psych mental status grossly normal and thought process normal Skin no rashes or lesions noted and no wounds MDM MDM MDM Narrative Medical decision making narrative: Patient having pain and tenderness throughout most of the left lateral posterior rib cage except for the uppermost ribs, and dyspnea due to pain. Breath sounds are equal bilaterally low suspicion of a pneumothorax, trachea midline. 5 view x-ray series of the left rib cage including a PA chest are normal on my interpretation showing no acute displaced rib fracture, clavicle fracture, pneumothorax, or widened mediastinum. 5 view x-ray series of the left shoulder on my interpretation is negative for acute fracture or dislocation of the proximal humerus or shoulder girdle or acromioclavicular joint or clavicle. Patient was given injection of morphine and prophylactic ODT Zofran for pain and nausea, he is doing better on reevaluation will prescribe him some pain medication, supportive care advised along with incentive spirometry which was given. Radiography Diagnostic Testing: Clinical Impression(s) from Imaging Studies Ribs w/Chest X-Ray 05/20/24 00:17 IMPRESSION: No evidence of a left rib fracture. Electronically Signed: Evan Butts DO at 1:19 EDT , Shoulder X-Ray 05/20/24 00:17 IMPRESSION: No fracture or dislocation. Electronically Signed: Evan Butts DO at 1:17 EDT , Discharge Plan Triage Chief Complaint: Fall ED Provider: Laurent Kellogg Dx/Rx/DC Orders Clinical Impression: Contusion of ribs, Contusion of left shoulder, Fall from slip, trip, or stumble Instructions: Using an Incentive Spirometer, ED Bruise, Rib Prescriptions: New oxycodone-acetaminophen 5-325 mg tablet 1 tab PO Q6H PRN PRN (Reason: pain) 4 Days Qty: 15 0RF No Action pantoprazole 40 mg tablet,delayed release (DR/EC) 40 mg PO DAILY nitroglycerin 0.4 mg tablet, sublingual 0.4 mg sublingual Q5-15M PRN (Reason: chest pain) Rx Instructions: do not exceed 3 doses per episode aspirin [Adult Low Dose Aspirin] 81 mg tablet,delayed release (DR/EC) 81 mg PO QDAY Qty: 90 3RF hydrochlorothiazide 25 mg tablet 25 mg PO DAILY Qty: 90 3RF tamsulosin 0.4 mg capsule 0.4 mg PO DAILY Qty: 30 11RF losartan 100 mg tablet 100 mg PO DAILY Patient Comments: TAKE 1 TABLET BY MOUTH ONCE DAILY allopurinol 300 mg tablet 300 mg PO DAILY Patient Comments: TAKE 1 TABLET BY MOUTH ONCE DAILY WITH FOOD rosuvastatin 5 mg tablet 5 mg PO DAILY Patient Comments: TAKE 1 TABLET BY MOUTH EVERY DAY AT BEDTIME Brilinta 90 mg Tablet 90 mg PO BID Qty: 60 11RF Primary Care Provider: [facility] Referrals: Brenna Dobson NP-C [Med Staff - Adv Practice Prof] - 3-5 Days if not improving Print Language: [place] Disposition Disposition: Home, Self Care
[2024-05-20] MEDS: Ondansetron ODT 4 MG Tablet PO (00:32)
[2024-05-20] MEDS: Morphine 4 MG/ML Syringe IM (00:32)
--- NOTE | 2024-05-20 01:58 | EKG12_ITS ---
Test Reason : DYSRHYTHMIA Blood Pressure : / mmHG Vent. Rate : 099 BPM Atrial Rate : 099 BPM P-R Int : 146 ms QRS Dur : 082 ms QT Int : 346 ms P-R-T Axes : 057 048 040 degrees QTc Int : 444 ms Normal sinus rhythm Normal ECG Confirmed by Isaac Perez ([id number]), editor index HALEIGH JACQUES ([id number]) on 05/20/2024 1:08:00 PM Referred By: Confirmed By:Isaac Perez
--- NOTE | 2024-05-20 01:58 | RAD_ITS ---
INDICATION: repeat fall/syncope EXAMINATION/TECHNIQUE: X-RAY - XR Chest 1 View COMPARISON: 05/20/2024 at 12:23 AM. FINDINGS: LINES/DEVICES: None. LUNGS: Moderate left pleural effusion. No evidence of a pneumothorax. Left basilar atelectasis. MEDIASTINUM AND CARDIOVASCULAR STRUCTURES: Cardiac silhouette is normal in size and contour. Mediastinum is unremarkable. BONES AND SOFT TISSUES: No acute abnormality. RAD/Chest 1 View (Portable) IMPRESSION: Left pleural fluid collection corresponding to the hemothorax seen on CT. No evidence of a fracture or a pneumothorax. Electronically Signed: Evan Butts DO at 3:13 EDT ,
--- NOTE | 2024-05-20 02:04 | ED.RN ---
0145: PATIENT LEFT IN W/ ROOM FOLLOWING DISCHARGE INSTRUCTIONS. FAMILY INFORMED THEY ARE WAITING ON PHARMACY FOR A RX TOTAL. 0154: PATIENTS CAME OUT OF ROOM AND YELLED I NEED HELP. RESPONDING STAFF Carroll LARA, Peg BETTS, AND THIS NURSE. PATIENT FOUND ON THE FLOOR IN THE BACK LEFT CORNER OF THE ROOM BELOW THE VITAL SIGNS MACHINE. PATIENT FOUND IN PRONE POSITION, UNCONSCIOUS, BLUE IN THE FACE WITH HIS PANTS AROUND HIS ANKLES. PATIENT AROUSED IMMEDIATELY TO CALLING AND SHAKING OF LEFT ARM. HE WAS ORIENTED AOX3 (PERSON, PLACE, TIME), BUT NOT SURE WHAT HAPPENED. VITALS SIGNS OBTAINED AT THIS TIME. PATIENT COMPLAINED OF PAIN IN RIGHT OCCIPUT W/ NO SIGNS OF SWELLING OR ECCHYMOSIS. DENIED PAIN OF NECK OR BACK PAIN. CONTINUED COMPLAINT OF LEFT RIB PAIN. I WAS INFORMED BY HIS THAT BEFORE THE FALL, HE WAS SITTING ON THE EDGE OF THE BED GETTING HIS PANTS ON. SHE STATED, HE PUT IS HEAD INTO HIS CHEST AND ROLLED FORWARD AND TO THE RIGHT. 0156: PATIENT RETURNED TO BED IN A POSITION OF COMFORT AND PLACED ON ECG MONITOR. 0158: NEW ORDERS BY PROVIDER
--- NOTE | 2024-05-20 02:19 | CT_ITS ---
INDICATION: left thorax trauma, syncope, sob, abn CXR EXAMINATION: CT Chest W/O Contrast Injection TECHNIQUE: Helically acquired images were obtained of the chest with sagittal and coronal reconstructed images. Individualized dose optimization techniques were used for this CT. COMPARISON: X-rays from earlier same day. FINDINGS: LUNGS, PLEURA AND LARGE AIRWAYS: No consolidation or edema. No pulmonary nodule. Large left hemothorax with associated atelectasis. No pneumothorax. THYROID: Unremarkable. HEART AND PERICARDIUM: Coronary artery calcifications are present. No pericardial effusion. MEDIASTINUM AND SUDEEP: No mediastinal or hilar adenopathy. Esophagus is unremarkable. No hiatal hernia. VESSELS: No thoracic aortic aneurysm. UPPER ABDOMEN: The visualized upper abdomen is unremarkable. BONES: No acute abnormality. CT/Chest without Contrast IMPRESSION: Large left hemothorax. No rib fracture or pneumothorax. Electronically Signed: Evan Butts DO at 3:11 EDT ,
--- NOTE | 2024-05-20 02:22 | CT_ITS ---
INDICATION: trauma EXAMINATION: CT BRAIN - CT Head or Brain W/O Contrast Injection TECHNIQUE: Multiple axial images were obtained of the head with sagittal and coronal reconstructed images. Individualized dose optimization techniques were used for this CT. IV contrast dosage and agent: None. COMPARISON: None. FINDINGS: BRAIN PARENCHYMA: No evidence of an acute infarct or intracranial hemorrhage. No evidence of a mass. Chronic left basal ganglia lacunar infarct versus a dilated perivascular space. CSF SPACES: The ventricles, sulci and subarachnoid cisterns are appropriate for age. CALVARIUM, SKULL BASE, PARANASAL SINUSES AND MASTOID AIR CELLS: No fracture. Mastoid air cells are clear. Visualized paranasal sinuses are unremarkable. ORBITS: The globes, extraocular muscles, optic nerves and retrobulbar fat are unremarkable. CT/Brain/Head without Contrast IMPRESSION: No fracture or acute intracranial abnormality. Electronically Signed: Evan Butts DO at 3:02 EDT ,
[2024-05-20 02:51] LABS: Absolute Lymphocyte Count 2.46 X10^3/uL (0.83-4.51); Absolute Neutrophil Count 4.6 X10^3/uL (2.0-7.7); Basophil# 0.08 X10^3/uL; Eosinophil# 0.09 X10^3/uL; Eosinophils% 1.2 % (0-5); Hemoglobin 12.7 g/dL (13.0-16.5); Lymphocyte # 2.46 X10^3/ul (0.83-4.51); Lymphocyte % 31.7 % (19-41); Mean Corp Hgb Conc 34.3 g/dL (32-36); Mean Corpuscular Volume 93.2 fL (80-94); Mean Platelet Vol. 9.6 fl (6.2-12.0); Monocyte# 0.49 X10^3/uL; Monocyte% 6.3 % (0-10); NRBC Flagged by Analyzer 0 % (0-5); Neutrophil # 4.58 X10^3/uL (2.7-7.7); Neutrophil % 59.2 % (47-70); Platelet Count 202 K/mm3 (150-450); RBC Distribution Width SD 41.1 fl (35.1-43.9); Red Blood Count 3.97 M/mm3 (4.6-6.2); White Blood Count 7.8 K/mm3 (4.4-11.0)
[2024-05-20] MEDS: fentaNYL 100 MCG/2 ML Ampul 50 MCG IV ×4 (02:56→07:43)
[2024-05-20] MEDS: 0.9% Normal Saline (1000mL) 1,000 ML 999 ML IV ×2 (03:05→04:35)
[2024-05-20] MEDS: Lidocaine 1% (20 ml mdv) 20 ML Vial 10 ML INFILT (03:06)
[2024-05-20 03:10] LABS: Anion Gap 9 (5-15); BUN 15 mg/dL (7-18); BUN/Creat Ratio 12.1 RATIO (10-20); Calcium,Total 8.7 mg/dL (8.5-10.1); Chloride 99 mmol/L (98-107); Creatinine, Serum 1.24 mg/dL (0.70-1.30); EST Glomerular Filtration Rate 65 mL/min (>60); Est Glom Filt Rate - Afr Amer 78 mL/min (>60); Estimated Creatinine Clearance 76.81 ml/min; Glucose 186 mg/dL (74-106); Potassium 3.5 mmol/L (3.5-5.1); Sodium Level 134 mmol/L (136-145)
[2024-05-20] MEDS: Midazolam 5 MG/ML Syringe 10 MG IV (03:34)
--- NOTE | 2024-05-20 03:54 | RAD_ITS ---
INDICATION: L THORACOSTOMY PLACEMENT EXAMINATION/TECHNIQUE: X-RAY - XR Chest 1 View COMPARISON: 05/20/2024 at 2:08 AM. FINDINGS: LINES/DEVICES: Interval placement of a left apical chest tube. LUNGS: The previously seen left hemothorax is no longer visualized. Left basilar atelectasis. No evidence of a pneumothorax. MEDIASTINUM AND CARDIOVASCULAR STRUCTURES: Cardiac silhouette is normal in size and contour. Mediastinum is unremarkable. BONES AND SOFT TISSUES: No acute abnormality. RAD/Chest 1 View (Portable) IMPRESSION: Previously seen left hemothorax is no longer visualized. Left basilar atelectasis. Electronically Signed: Evan Butts DO at 4:58 EDT ,
[2024-05-20 04:41] LABS: Hemoglobin 11.6 g/dL (13.0-16.5)
--- NOTE | 2024-05-20 05:21 | ED.RN ---
concerned about bleeding around chest tube site. site noted to have bleeding, Dr. Kellogg made aware. Chest tube site broken down. bleeding noted around insertion site. New dressing applied. Suction to site maintained. patient still drowsy but waking up when spoke too. remains at bedside
== END 2024-05-20 07:59 | disposition short-term general hospital (02) ==
PROVIDERS: Emergency Provider Emergency Medicine; Visit Provider Emergency Medicine
DX: S27.1XXA Traumatic hemothorax, initial encounter (principal); S20.212A Contusion of left front wall of thorax, initial encounter; S40.012A Contusion of left shoulder, initial encounter; W10.8XXA Fall (on) (from) other stairs and steps, initial encounter; I95.89 Other hypotension; I10 Essential (primary) hypertension; E78.00 Pure hypercholesterolemia, unspecified; Z79.02 Long term (current) use of antithrombotics/antiplatelets; Z79.82 Long term (current) use of aspirin; Z79.899 Other long term (current) drug therapy
CPT/HCPCS: 32551; 36415; 70450; 71045; 71101; 71250; 73030; 80048; 82077; 85014; 85018; 85025; 93005; 96361; 96372; 96374; 96375; 96376; 99152; 99153; 99285; J7030; A4216

== ENCOUNTER → 2024-08-29 | Outpatient (CLI) | payer OTHER, SELFPAY ==
--- NOTE | 2024-08-29 07:58 | PR.HP_ITS ---
History of Present Illness General Arrival date:: 08/29/24 Arrival time:: 07:59 Date of Referral:: 07/29/24 Date of Evaluation: 08/29/24 History of Present Pulmonary Event mMRC Breathless Scale: When is the patient short of breath? Y/N Grade: Description of Breathlessness: 0 I only get breathless with strenuous exercise. 1 I get short of breath when hurrying on level ground or walking up a slight hill. 2 On level ground, I walk slower than people of the same age because of breathless, or have to stop for breath when walking at my own pace. 3 I stop for breath after walking 100 yards or after a few minutes on level ground. 4 I am too breathless to leave the house or I am breathless when dressing. Respiratory Problems: Yes Fatigue, Dizziness, Anxiety and Dyspnea with Activity; No Retain Secretions, Limited Range of Motion, Chest Pain, Wheezing, Able to Speak in Full Sentences, Ankle Swelling, Hoarseness, Panic, Dyspnea at Rest, Dyspnea Lying Down Flat or Cough with Secretions Medications Home Medications allopurinol 300 mg tablet 300 mg PO DAILY gout 11/25/23 losartan 100 mg tablet 100 mg PO DAILY blood pressure 11/25/23 rosuvastatin 5 mg tablet 5 mg PO DAILY cholesterol 11/25/23 aspirin 81 mg tablet,delayed release (Adult Low Dose Aspirin) [facility] 12/19/23 hydrochlorothiazide 25 mg tablet 25 mg PO DAILY diuretic #90 tabs 12/19/23 nitroglycerin 0.4 mg sublingual tablet 0.4 mg sublingual Q5-15M PRN chest pain 12/19/23 pantoprazole 40 mg tablet,delayed release 40 mg PO DAILY reflux 12/19/23 tamsulosin 0.4 mg capsule 0.4 mg PO DAILY prostate #30 caps 12/19/23 ticagrelor 90 mg tablet (Brilinta) 90 mg PO BID #60 tabs 12/21/23 Allergies Allergies No Known Allergies Allergy (Verified 05/20/24 00:14) Sleep Disorder Evaluation Hx of Sleep Apnea: No Do you snore loudly (louder than talking or can be heard through closed doors)?: No Do you often feel tired/ fatigued/ sleepy during daytime?: No Has anyone observed you stop breathing during sleep?: No History of Hypertension (for STOP score): Yes STOP Results: Negative Medical Utilization Medical Devices Do you use a peak flow meter at home?: No Do you use a spacer device with your inhalers?: No Medical Utilization Number of hospital visits in the last year?: 2 Number of emergency room visits in the last year?: 2 Do you see your physician on a regular schedule?: Yes How often?: 1 Advanced Directives Advanced Directives Power of Animal Care Supervisor: No Living Will: No Advance Directives Information Provided: No Advance Directives on File: No DNR Order?:: No Past Medical History Covid-19 Screening Physicial Symptoms Other Clinical Concerns Exposure Risk Pertinent Comorbidities Has a serious heart condition:: Yes Medical History Medical History Impaired fasting glucose Elevated PSA GERD (gastroesophageal reflux disease) Chest pain Gout Hypercholesteremia Hypertension Surgical History Surgical History Stented coronary artery (12/21/23) Significant Family History Family History Grandfather Myocardial infarction Grandmother Breast cancer Thyroid cancer Throat cancer Social History Smoking History Smoking Status: Never smoker Alcohol Use Alcohol Usage: No Substance Abuse Hx Substance Use: No Occupation Occupation (List type of work in comments):: Employed Hours worked per day:: 9 Hobbies, Recreation, Social Activities Hobbies: Other Recreational Activities: I am able to engage in all my recreational activities Functioning ADL/IADL Current Ability Current Ability: Dependent: Self-Care (e.g.,grooming, dressing, & bathing), Dependent: Ambulation, Dependent: Transfer and Dependent: Household tasks (e.g., light meal prep, laundry, shopping) Pt Functioning Prior to Problem Prior Functioning: Self-Care (e.g.,grooming, dressing, & bathing): Dependent, Ambulation: Dependent, Transfer: Dependent and Household tasks (e.g., light meal prep, laundry, shopping): Dependent Social Environment Status Marital Status: Current Living Arrangements Living Environment:: Spouse Children How many children do you have?: 2 Do any of your children live nearby?: Yes Safety Do you feel safe in your surroundings?: Yes Assistance Do you need any assistance at home?: no Review of Systems Review of Systems Review of Systems Respiratory: Reports Cough, SOB upon Exertion, Appetite, Normal, Dizziness/Lightheadedness, Fatigue and Sleep, Normal; Denies Hemoptysis, Pleuritic Pain, SOB at Rest, Sputum production, Wheezing, PVD or Sexual changes Pain Is Patient Pain Free?: Yes Risk Factor Assessment Chief Complaint Chief Complaint: hemothorax on left Vital Signs Pulse Rate: 99 Pulse Ox: 97 Blood Pressure: 94/70 Obesity Height: 5 ft 7 in Weight:: 186 lb Weight in Pounds: 186.0 lbs Body Mass Index (BMI): 29.1 Nutritional Referral for Obesity: No Physical Activity Physical Inactivity: Reg Exercise 30 min/day Risk Stratification Risk Guidelines: Lowest Risk: Risk Factor for Smoking, Moderate Risk: Risk Factor for Diabetes, Risk Factor for Obesity, Risk Factor for Sedentary Lifestyle and Risk Factor for Depression and Highest Risk: Risk Factor for Dyslipidemia and Risk Factor for Hypertension For Smoking Smoking Risk Guidelines For Dyslipidemia Dyslipidemia Risk Guidelines For Diabetes Mellitus Diabetes Risk Guidelines For Obesity/Overweight Obesity/Overweight Risk Guidelines For Hypertension Hypertension Risk Guidelines For Sedentary Lifestyle Sedentary Lifestyle Risk Guidelines For Depression Depression Risk Guidelines Motivation Motivation to Participate On a scale of 1 to 10, how prepared are you to commit to attending program?: 4 What do you see as barriers to successfully being able to complete the program?: co pays What do you see as the benefits of succesfully completing the program? In other words, what do you hope to get out of participating in the program?: get better, back to normal Are there issues you are dealing with that will interfere with completing the program?: no Do you have a spouse or signficant other, family or friends who will help support you to complete the program?: yes
[2024-08-29 08:11] VITALS: PULSE 99; O2SAT 97
[2024-08-29 08:14] VITALS: BP 94/70
--- NOTE | 2024-08-29 08:38 | PCM.PR.TP ---
General Information2 General Information Admitting Diagnosis: hemothorax on left Personal Learning Style/Barriers Personal Learning Style:: Audio/Visual Barriers to Learning: None Stage of change r/t lifestyle modifications: Contemplation Education/Goals [place] Patient Goals: Increase muscle strength: Initial Assessment, Experience less dyspnea: Initial Assessment, Improve energy level: Initial Assessment, Improve the ability to cope with ADLs: Initial Assessment, Improve knowledge of lung disease: Initial Assessment, Understand how to use medications: Initial Assessment, Improve diet and nutrition: Initial Assessment, Improve my quality of life: Initial Assessment and Reduce Stress/relaxation techniques: Initial Assessment Exercise - Initial Assessment Visit Date of Eval: 08/29/24 (initial eval ) Problem/Goals Problems: Deconditioning Goals:: Aerobic exercise 30-60 mins x 12 weeks [36 sessions] Physician Prescribed Exercise Modalities: Treadmill, [employer] AD-7, Pathful Stepper, Pathful Pro-II Ergometer and Pathful Lateral Rn Gastroenterology Frequency (days/week): 3 Duration (Minutes):: 30-45 Intensity: 60-80% of age predicted maximum heart rate reserve Current METSs:: 2 Target HR:: 125 (100-125) Resting Blood Pressure: 94/70 Minimum SpO2 with exercise: 97 EKG Type: NSR Current Minutes of Exercise: limited walking at home Plan Plan and Plan to Review:: Benefits of exercise, Core components of exercise, How to measure dyspnea level, How to monitor dyspnea level, Exercise intensity, Exercise safety guideline, Home exercise guidelines and Jim: 3-4/11-13 Home Exercise Mode: Walking Nutrition/Wt Mgmt - Initial Visit Date of Eval: 08/29/24 (initial eval ) Weight Management Knowledge Deficit Management of:: Overweight and Role of exercise in weight control Admit Height:: 5 ft 7 in Admit Weight:: 186 lb Admit BMI:: 29.1 Intervention Referral to dietitian:: No (declines) Will attend diet classes:: Yes Intervention/Plan: Instruct on ideal BMI & set weight loss goal w/patient, Assist pt to ID & incorporate diet changes for weight loss by S9, Refer to Structured Weight Loss program as appropriate, Encourage goal of using 250-300dcal per session for weight loss and Other additional plan/interventions Plan Nutrition Plan: Yes: Review BMI or WC & identify target wt & strategies for wt control, Yes: Nutrition education class:, Yes: Medication education class [Prednisone]:, Yes: Weight control education class:, Yes: Education re: Need for ongoing weight monitoring, Yes: Food diary: and Yes: Physical activity log: Nutrition/Wt Mgmt - 30-Day Weight Management Height: 5 ft 7 in Weight:: 186 lb BMI: 29.1 Nutrition/Wt Mgmt - 60-Day Weight Management Height: 5 ft 7 in Weight:: 186 lb BMI: 29.1 Nutrition/Wt Mgmt - 90-Day Weight Management Height: 5 ft 7 in Weight:: 186 lb BMI: 29.1 Nutrition/Wt Mgmt - Final Weight Management Height: 5 ft 7 in Weight:: 186 lb BMI: 29.1 Psychosocial - Initial Assess Visit Date of Eval: 08/29/24 (initial eval ) Problems/Goals History of Emotional Disorders: None Psychosocial Goals: 1. Patient is free from overwhelming symtoms of depression (or anxiety, 2. Identifies personal stressors & states the strategies for managing, 3. Identifies activities to decrease isolation and/or symptoms of, 4. Improved psychosocial coping skills., 5. Verbalizes coping strategies., 6. Adequate treatment of depression. and 7. Improved Q.O.L. Psychosocial Test Tool Used:: Pulmonary QOL and PHQ-9 Questionnaire Referred to MD for counseling:: No Referral to Behavioral Health PS - Interventions: Yes: Attend Stress Management Classes Intervention/Plan: See List Interventions/Plan:: Assess stressors,coping strategies & signs of derpression on admission, Instruct/assist pt to develop coping & personal stress Mgt strategies, Refer to Behavioral Health if appropriate, Refer to Physician if appropriate, Instruct patient to recognize signs & symptoms of depression, Instruct patient to recog and Other additional plan/intervention Psychosocial - 30-Day Problems/Goals History of Emotional Disorders: None Psychosocial Goals: 1. Patient is free from overwhelming symtoms of depression (or anxiety, 2. Identifies personal stressors & states the strategies for managing, 3. Identifies activities to decrease isolation and/or symptoms of, 4. Improved psychosocial coping skills., 5. Verbalizes coping strategies., 6. Adequate treatment of depression. and 7. Improved Q.O.L. Psychosocial Test Tool Used:: Pulmonary QOL and PHQ-9 Questionnaire Referred to MD for counseling:: No Referral to Behavioral Health PS - Interventions: Yes: Attend Stress Management Classes Plan Interventions/Plan:: Assess stressors,coping strategies & signs of derpression on admission, Instruct/assist pt to develop coping & personal stress Mgt strategies, Refer to Behavioral Health if appropriate, Refer to Physician if appropriate, Instruct patient to recognize signs & symptoms of depression, Instruct patient to recog and Other additional plan/intervention Psychosocial - 60-Day Problems/Goals History of Emotional Disorders: None Psychosocial Goals: 1. Patient is free from overwhelming symtoms of depression (or anxiety, 2. Identifies personal stressors & states the strategies for managing, 3. Identifies activities to decrease isolation and/or symptoms of, 4. Improved psychosocial coping skills., 5. Verbalizes coping strategies., 6. Adequate treatment of depression. and 7. Improved Q.O.L. Psychosocial Test Tool Used:: Pulmonary QOL and PHQ-9 Questionnaire Referred to MD for counseling:: No Referral to Behavioral Health PS - Interventions: Yes: Attend Stress Management Classes Plan Interventions/Plan:: Assess stressors,coping strategies & signs of derpression on admission, Instruct/assist pt to develop coping & personal stress Mgt strategies, Refer to Behavioral Health if appropriate, Refer to Physician if appropriate, Instruct patient to recognize signs & symptoms of depression, Instruct patient to recog and Other additional plan/intervention Psychosocial - 90-Day Problems/Goals History of Emotional Disorders: None Psychosocial Goals: 1. Patient is free from overwhelming symtoms of depression (or anxiety, 2. Identifies personal stressors & states the strategies for managing, 3. Identifies activities to decrease isolation and/or symptoms of, 4. Improved psychosocial coping skills., 5. Verbalizes coping strategies., 6. Adequate treatment of depression. and 7. Improved Q.O.L. Psychosocial Test Tool Used:: Pulmonary QOL and PHQ-9 Questionnaire Referred to MD for counseling:: No Referral to Behavioral Health PS - Interventions: Yes: Attend Stress Management Classes Plan Interventions/Plan:: Assess stressors,coping strategies & signs of derpression on admission, Instruct/assist pt to develop coping & personal stress Mgt strategies, Refer to Behavioral Health if appropriate, Refer to Physician if appropriate, Instruct patient to recognize signs & symptoms of depression, Instruct patient to recog and Other additional plan/intervention Psychosocial - Final Assess Problems/Goals History of Emotional Disorders: None Psychosocial Goals: 1. Patient is free from overwhelming symtoms of depression (or anxiety, 2. Identifies personal stressors & states the strategies for managing, 3. Identifies activities to decrease isolation and/or symptoms of, 4. Improved psychosocial coping skills., 5. Verbalizes coping strategies., 6. Adequate treatment of depression. and 7. Improved Q.O.L. Psychosocial Test Tool Used:: Pulmonary QOL and PHQ-9 Questionnaire Referred to MD for counseling:: No Referral to Behavioral Health PS - Interventions: Yes: Attend Stress Management Classes Plan Interventions/Plan:: Assess stressors,coping strategies & signs of derpression on admission, Instruct/assist pt to develop coping & personal stress Mgt strategies, Refer to Behavioral Health if appropriate, Refer to Physician if appropriate, Instruct patient to recognize signs & symptoms of depression, Instruct patient to recog and Other additional plan/intervention Oxygen & Oxygen Titration Init Visit Date of Eval: 08/29/24 (initial eval ) Initial Assessment SpO2:: 97 Patient Reports:: No cough and Hospitalized in the past 12 months [list how many times] (2) Plans Plan: Monitor SpO2 rest & with exercise and Recommend appropriate FiO2 to Pt/MD Reviewed prescribed medications:: Purpose, Schedule, Side effects and Importance of compliance Instruct correct technique/timing & care:: MDI, DPI, Nebulizer and Return demo use of inhaler Bronchial Hygiene Plan: Controlled cough, CPT, Vibratory PEP device, VEST, Role of exercise in secretion clearance, NS Nasal spray, Hydration, Hand hygiene, Evaluate sputum, When to call MD, Signs/symptoms to report:, Influenza/Pneumovax vaccines and Cleaning of respiratory equipment Oxygen & Oxygen Titration 30D Reassessment SpO2:: 97 Oxygen & Oxygen Titration 60D Reassessment SpO2:: 97 Oxygen & Oxygen Titration 90D Reassessment SpO2:: 97 Oxygen & Oxygen Titration SAGAR Reassessment SpO2:: 97 Core Components - Initial Visit Date of Eval: 08/29/24 (initial eval ) Hypertension Hypertension Diagnosis:: Hypertension ICD-10 I10 BP: 94/70 [place] [employer] Hypertension Guidelines Low Sodium diet: Yes Outcomes/Goals: Able to verbalize/achieve optimal blood pressure <130/80, Incorporates diet changes & exercise for blood pressure control by DC and Other additional outcomes/goals Tobacco - Initial Assessment Tobacco Program Goals Tobacco Use: Non-smoker Exacerbation Mgmt & Airway Clearance Goals: Other Patient Reports:: No cough and Hospitalized in the past 12 months [list how many times] (2) Plan: Monitor SpO2 rest & with exercise and Recommend appropriate FiO2 to Pt/MD Instruct correct technique/timing & care:: MDI, DPI, Nebulizer and Return demo use of inhaler Bronchial Hygiene Plan: Controlled cough, CPT, Vibratory PEP device, VEST, Role of exercise in secretion clearance, NS Nasal spray, Hydration, Hand hygiene, Evaluate sputum, When to call MD, Signs/symptoms to report:, Influenza/Pneumovax vaccines and Cleaning of respiratory equipment Medication Interventions/plans: Instruct on medication effects & side effects, Review medication list w/patient every two weeks and Instruct importance of taking meds as ordered & assist problem solving Medication Goals: Adherence to prescribed medications and Correct technique/timing & care of MDI, DPI, nebulizer, and spacer. Does pt report taking home meds as prescribed?: Yes Reviewed prescribed medications:: Purpose, Schedule, Side effects and Importance of compliance Diabetes Diabetes:: No Referral to dietitian:: No (declines) Will attend diet classes:: Yes Core Components - 30 DAYS Hypertension Hypertension Diagnosis:: Hypertension ICD-10 I10 Resting Blood Pressure:: 94/70 [place] [employer] Hypertension Guidelines Outcomes/Goals: Able to verbalize/achieve optimal blood pressure <130/80, Incorporates diet changes & exercise for blood pressure control by DC and Other additional outcomes/goals Tobacco - 30-Day Tobacco Program Goals Tobacco Use: Non-smoker Diabetes Diabetes:: No Core Components - 60 DAYS Hypertension Hypertension Diagnosis:: Hypertension ICD-10 I10 Resting Blood Pressure:: 94/70 [place] [employer] Hypertension Guidelines Outcomes/Goals: Able to verbalize/achieve optimal blood pressure <130/80, Incorporates diet changes & exercise for blood pressure control by DC and Other additional outcomes/goals Tobacco - 60-Day Tobacco Program Goals Tobacco Use: Non-smoker Diabetes Diabetes:: No Core Components - 90 DAYS Hypertension Hypertension Diagnosis:: Hypertension ICD-10 I10 Resting Blood Pressure:: 94/70 [place] [employer] Hypertension Guidelines Outcomes/Goals: Able to verbalize/achieve optimal blood pressure <130/80, Incorporates diet changes & exercise for blood pressure control by DC and Other additional outcomes/goals Tobacco - 90-Day Tobacco Program Goals Tobacco Use: Non-smoker Diabetes Diabetes:: No Core Components - Final Hypertension Hypertension Diagnosis:: Hypertension ICD-10 I10 Resting Blood Pressure:: 94/70 [place] [employer] Hypertension Guidelines Outcomes/Goals: Able to verbalize/achieve optimal blood pressure <130/80, Incorporates diet changes & exercise for blood pressure control by DC and Other additional outcomes/goals Tobacco - Final Tobacco Program Goals Tobacco Use: Non-smoker Diabetes Diabetes:: No Patient Health Questionnaire PHQ-9 Screening Initial Assessment: 1. Little interest or pleasure in doing things: Not at all 2. Feeling down, depressed, or hopeless: Not at all 3. Trouble falling or staying asleep, or sleeping too much: Several days 4. Feeling tired or having little energy: Several days 5. Poor appetite or overeating: Not at all 6. Feeling bad about yourself -- or that you are a failure or have let yourself or your family down: Not at all 7. Trouble concentrating on things, such as reading the newspaper or watching television: Not at all 8. Moving or speaking so slowly that other people could have noticed. Or the opposite - being so fidgety or restless that you have been moving around a lot more than usual: Not at all 9. Thoughts that you would be better off , or of hurting yourself in some way: Not at all How difficult have these problems made it for you to do your work, take care of things at home, or get along with other people?: Not difficult at all Total Score: 2 Knowledge Questionaire (BCKQ) Information Information: [place] COPD Knowledge Questionnaire (BCKQ) This questionnaire is designed to find out what you know about your lung problem. It should be completed without help form anyone else. This usually takes between 10 and 20 minutes. Your answers will help us to find out what information you need to help you to understand and manage your lung condition. [place] which you think is the correct answer. Self-Efficacy 6-Item Scale Initial Assessment: We would like to know how confident you are in doing certain activities. Please select your confidence level for: Fatigue Select Number: 4 Physical Discomfort or Pain Select Number: 4 Emotional Distress Select Number: 4 Other Symptoms or Health Problems Select Number: 4 Different Tasks and Activities Select Number: 5 Medication Select Number: 4 Total Score:: 4 Nutrition Survey Nutrition Survey Instructions Scoring Instructions Nutrition Survey Initial: Have you lost >10 lbs over the past 2 months without trying?: Yes Are you following a special diet at home for diabetes, low fat, or low salt?: No Are you interested in meeting with a dietitian for help understanding your diet?: No Do you eat less than 3 meals a day?: No Do you eat fatty meats (martino, sausage, ribs, etc), fried foods, desserts, large amounts of salad dressings, margarine, butter, or cheese most days?: Yes Do you have food allergies? [Enter types in comment field]: No Do you eat in restaurants more than 3 times a week?: No Do you season food with salt, seasoning salt, or garlic salt?: Yes Do you used canned, boxed, frozen meals, or soups, seasoning packets?: Yes Total Score:: 4
[2024-08-29 08:55] VITALS: BP 94/70; O2SAT 97; BMI 29.1
[2024-08-29 08:56] VITALS: BMI 29.1
== END | disposition home or self-care (01) ==
PROVIDERS: Referring Provider Thoracic Surgery (Cardiothoracic Vascular Surgery); Visit Provider Thoracic Surgery (Cardiothoracic Vascular Surgery)
DX: J94.2 Hemothorax (principal)

== ENCOUNTER 2024-09-10 10:00 | Outpatient (RCR) | payer OTHER, SELFPAY ==
[2024-08-29 08:55] VITALS: BMI 29.1
== END 2024-09-13 23:59 ==
LOC: PR 10:00
PROVIDERS: Referring Provider Thoracic Surgery (Cardiothoracic Vascular Surgery); Visit Provider Thoracic Surgery (Cardiothoracic Vascular Surgery)
DX: J94.2 Hemothorax (principal)
CPT/HCPCS: 97150; G0239

== ENCOUNTER 2024-10-10 10:00 | Outpatient (RCR) | payer OTHER, SELFPAY ==
[2024-08-29 08:55] VITALS: BMI 29.1
--- NOTE | 2024-09-26 09:38 | PCM.PR.TP ---
Exercise - Initial Assessment Visit Session Number:: 10 Physician Prescribed Exercise Modalities: Treadmill, [employer]inn Airdyne AD-7 and Sci[employer] Stepper Current METSs:: 3.1 Target HR:: 125 (100-125) Current RPD:: 2-3 Maximum Exercise HR:: 141 Resting Blood Pressure: 126/66 Maximum Exercise Blood Pressure: 140/70 Minimum SpO2 with exercise: 92 EKG Type: ST without ectopy Nutrition/Wt Mgmt - Initial Visit Session Number:: 10 Weight Management Admit Height:: 5 ft 7 in Admit Weight:: 206 lb 8 oz Admit BMI:: 32.3 Nutrition/Wt Mgmt - 30-Day Visit Date of Eval: 09/26/24 Session Number:: 10 Weight Management Height: 5 ft 7 in Weight:: 206 lb 8 oz BMI: 32.3 Weight Goals Progress:: Progressing (pt is scheduled to attend nutrition class. Will encourage pt to keep a food log also.) Nutrition/Wt Mgmt - 60-Day Visit Session Number:: 10 Weight Management Height: 5 ft 7 in Weight:: 206 lb 8 oz BMI: 32.3 Nutrition/Wt Mgmt - 90-Day Visit Session Number:: 10 Weight Management Height: 5 ft 7 in Weight:: 206 lb 8 oz BMI: 32.3 Nutrition/Wt Mgmt - Final Visit Session Number:: 10 Weight Management Height: 5 ft 7 in Weight:: 206 lb 8 oz BMI: 32.3 Psychosocial - Initial Assess Visit Session Number:: 10 Problems/Goals History of Emotional Disorders: None Psychosocial Goals: 1. Patient is free from overwhelming symtoms of depression (or anxiety, 2. Identifies personal stressors & states the strategies for managing, 3. Identifies activities to decrease isolation and/or symptoms of, 4. Improved psychosocial coping skills., 5. Verbalizes coping strategies., 6. Adequate treatment of depression. and 7. Improved Q.O.L. Psychosocial Test Tool Used:: Pulmonary QOL and PHQ-9 Questionnaire Referred to MD for counseling:: No Referral to Behavioral Health PS - Interventions: Yes: Attend Stress Management Classes Intervention/Plan: See List Interventions/Plan:: Assess stressors,coping strategies & signs of derpression on admission, Instruct/assist pt to develop coping & personal stress Mgt strategies, Refer to Behavioral Health if appropriate, Refer to Physician if appropriate, Instruct patient to recognize signs & symptoms of depression, Instruct patient to recog and Other additional plan/intervention Comments:: Pt denies any psychosocial issues at this time Psychosocial - 30-Day Visit Date of Eval: 09/26/24 Session Number:: 10 Problems/Goals History of Emotional Disorders: None Psychosocial Goals: 1. Patient is free from overwhelming symtoms of depression (or anxiety, 2. Identifies personal stressors & states the strategies for managing, 3. Identifies activities to decrease isolation and/or symptoms of, 4. Improved psychosocial coping skills., 5. Verbalizes coping strategies., 6. Adequate treatment of depression. and 7. Improved Q.O.L. Psychosocial Test Tool Used:: Pulmonary QOL and PHQ-9 Questionnaire Referred to MD for counseling:: No Referral to Behavioral Health PS - Interventions: Yes: Attend Stress Management Classes Plan Interventions/Plan:: Assess stressors,coping strategies & signs of derpression on admission, Instruct/assist pt to develop coping & personal stress Mgt strategies, Refer to Behavioral Health if appropriate, Refer to Physician if appropriate, Instruct patient to recognize signs & symptoms of depression, Instruct patient to recog and Other additional plan/intervention Comments:: Pt denies any psychosocial issues at this time Psychosocial - 60-Day Visit Session Number:: 10 Problems/Goals History of Emotional Disorders: None Psychosocial Goals: 1. Patient is free from overwhelming symtoms of depression (or anxiety, 2. Identifies personal stressors & states the strategies for managing, 3. Identifies activities to decrease isolation and/or symptoms of, 4. Improved psychosocial coping skills., 5. Verbalizes coping strategies., 6. Adequate treatment of depression. and 7. Improved Q.O.L. Psychosocial Test Tool Used:: Pulmonary QOL and PHQ-9 Questionnaire Referred to MD for counseling:: No Referral to Behavioral Health PS - Interventions: Yes: Attend Stress Management Classes Plan Interventions/Plan:: Assess stressors,coping strategies & signs of derpression on admission, Instruct/assist pt to develop coping & personal stress Mgt strategies, Refer to Behavioral Health if appropriate, Refer to Physician if appropriate, Instruct patient to recognize signs & symptoms of depression, Instruct patient to recog and Other additional plan/intervention Comments:: Pt denies any psychosocial issues at this time Psychosocial - 90-Day Visit Session Number:: 10 Problems/Goals History of Emotional Disorders: None Psychosocial Goals: 1. Patient is free from overwhelming symtoms of depression (or anxiety, 2. Identifies personal stressors & states the strategies for managing, 3. Identifies activities to decrease isolation and/or symptoms of, 4. Improved psychosocial coping skills., 5. Verbalizes coping strategies., 6. Adequate treatment of depression. and 7. Improved Q.O.L. Psychosocial Test Tool Used:: Pulmonary QOL and PHQ-9 Questionnaire Referred to MD for counseling:: No Referral to Behavioral Health PS - Interventions: Yes: Attend Stress Management Classes Plan Interventions/Plan:: Assess stressors,coping strategies & signs of derpression on admission, Instruct/assist pt to develop coping & personal stress Mgt strategies, Refer to Behavioral Health if appropriate, Refer to Physician if appropriate, Instruct patient to recognize signs & symptoms of depression, Instruct patient to recog and Other additional plan/intervention Comments:: Pt denies any psychosocial issues at this time Psychosocial - Final Assess Visit Session Number:: 10 Problems/Goals History of Emotional Disorders: None Psychosocial Goals: 1. Patient is free from overwhelming symtoms of depression (or anxiety, 2. Identifies personal stressors & states the strategies for managing, 3. Identifies activities to decrease isolation and/or symptoms of, 4. Improved psychosocial coping skills., 5. Verbalizes coping strategies., 6. Adequate treatment of depression. and 7. Improved Q.O.L. Psychosocial Test Tool Used:: Pulmonary QOL and PHQ-9 Questionnaire Referred to MD for counseling:: No Referral to Behavioral Health PS - Interventions: Yes: Attend Stress Management Classes Plan Interventions/Plan:: Assess stressors,coping strategies & signs of derpression on admission, Instruct/assist pt to develop coping & personal stress Mgt strategies, Refer to Behavioral Health if appropriate, Refer to Physician if appropriate, Instruct patient to recognize signs & symptoms of depression, Instruct patient to recog and Other additional plan/intervention Comments:: Pt denies any psychosocial issues at this time Oxygen & Oxygen Titration Init Visit Session Number:: 10 Initial Assessment SpO2:: 92 Oxygen & Oxygen Titration 30D Visit Date of Eval: 09/26/24 Session Number:: 10 Reassessment Reassessment- 30 Days: Demonstrate knowledge of O2 Rx at rest & w/exercise SpO2:: 92 Oxygen & Oxygen Titration 60D Visit Date of Eval: 09/26/24 Session Number:: 10 Reassessment SpO2:: 92 Oxygen & Oxygen Titration 90D Visit Date of Eval: 09/26/24 Session Number:: 10 Reassessment SpO2:: 92 Oxygen & Oxygen Titration SAGAR Visit Date of Eval: 09/26/24 Session Number:: 10 Reassessment SpO2:: 92 Core Components - Initial Visit Session Number:: 10 Core Components - 30 DAYS Visit Date of Eval: 09/26/24 Session Number:: 10 Core Components - 60 DAYS Visit Session Number:: 10 Core Components - 90 DAYS Visit Session Number:: 10 Core Components - Final Visit Session Number:: 10 Patient Health Questionnaire PHQ-9 Screening 30-Day Re-eval Assessment: 1. Little interest or pleasure in doing things: Not at all 2. Feeling down, depressed, or hopeless: Not at all 3. Trouble falling or staying asleep, or sleeping too much: Several days 4. Feeling tired or having little energy: Several days 5. Poor appetite or overeating: Not at all 6. Feeling bad about yourself -- or that you are a failure or have let yourself or your family down: Not at all 7. Trouble concentrating on things, such as reading the newspaper or watching television: Not at all 8. Moving or speaking so slowly that other people could have noticed. Or the opposite - being so fidgety or restless that you have been moving around a lot more than usual: Not at all 9. Thoughts that you would be better off , or of hurting yourself in some way: Not at all How difficult have these problems made it for you to do your work, take care of things at home, or get along with other people?: Not difficult at all Total Score: 2 Knowledge Questionaire (BCKQ) Information Information: [place] COPD Knowledge Questionnaire (BCKQ) This questionnaire is designed to find out what you know about your lung problem. It should be completed without help form anyone else. This usually takes between 10 and 20 minutes. Your answers will help us to find out what information you need to help you to understand and manage your lung condition. Mal the [place] which you think is the correct answer. Self-Efficacy 6-Item Scale 30-Day Re-eval Assessment: We would like to know how confident you are in doing certain activities. Please select your confidence level for: Fatigue Select Number: 4 Physical Discomfort or Pain Select Number: 4 Emotional Distress Select Number: 4 Other Symptoms or Health Problems Select Number: 4 Different Tasks and Activities Select Number: 5 Medication Select Number: 4 Total Score:: 4 Nutrition Survey Nutrition Survey Instructions Scoring Instructions
[2024-09-26 09:44] VITALS: BP 126/66; O2SAT 92; BMI 32.3
== END 2024-10-14 23:59 ==
LOC: PR 10:00
PROVIDERS: Referring Provider Thoracic Surgery (Cardiothoracic Vascular Surgery); Visit Provider Thoracic Surgery (Cardiothoracic Vascular Surgery)
DX: J94.2 Hemothorax (principal)
CPT/HCPCS: 97150; G0239

== ENCOUNTER → 2024-10-28 | Outpatient (CLI) | payer OTHER, SELFPAY ==
[2024-09-26 09:44] VITALS: BMI 32.3
--- NOTE | 2024-10-29 08:04 | PR.ITP_ITS ---
Exercise - Initial Assessment Visit Session Number:: 20 (Pt does not require O2) Physician Prescribed Exercise Modalities: Treadmill, [employer] Airdyne AD-7 and SciFit Stepper Target HR:: 125 (100-125) Current RPD:: 3 Maximum Exercise HR:: 114 Resting Blood Pressure: 92/66 Maximum Exercise Blood Pressure: 118/70 Minimum SpO2 with exercise: 92 EKG Type: NSR to ST with rare PVC Nutrition/Wt Mgmt - Initial Visit Session Number:: 20 Weight Management Admit Height:: 5 ft 7 in Admit Weight:: 208 lb 8 oz Admit BMI:: 32.6 Nutrition/Wt Mgmt - 30-Day Visit Date of Eval: 10/29/24 Session Number:: 20 Weight Management Height: 5 ft 7 in Weight:: 208 lb 8 oz BMI: 32.6 Nutrition/Wt Mgmt - 60-Day Visit Date of Eval: 10/29/24 Session Number:: 20 Weight Management Height: 5 ft 7 in Weight:: 208 lb 8 oz BMI: 32.6 Weight Goals Progress:: Progressing (Pt is to attend nutrition class. Pt encouraged to keep a food log for our review.) Nutrition/Wt Mgmt - 90-Day Visit Session Number:: 20 Weight Management Height: 5 ft 7 in Weight:: 208 lb 8 oz BMI: 32.6 Weight Goals Progress:: Progressing (Pt is to attend nutrition class. Pt encour aged to keep a food log for our review.) Nutrition/Wt Mgmt - Final Visit Session Number:: 20 Weight Management Height: 5 ft 7 in Weight:: 208 lb 8 oz BMI: 32.6 Psychosocial - Initial Assess Visit Session Number:: 20 Problems/Goals History of Emotional Disorders: None Psychosocial Goals: 1. Patient is free from overwhelming symtoms of depression (or anxiety, 2. Identifies personal stressors & states the strategies for managing, 3. Identifies activities to decrease isolation and/or symptoms of, 4. Improved psychosocial coping skills., 5. Verbalizes coping strategies., 6. Adequate treatment of depression. and 7. Improved Q.O.L. Psychosocial Test Tool Used:: Pulmonary QOL and PHQ-9 Questionnaire Referred to MD for counseling:: No Referral to Behavioral Health PS - Interventions: Yes: Attend Stress Management Classes Intervention/Plan: See List Interventions/Plan:: Assess stressors,coping strategies & signs of derpression on admission, Instruct/assist pt to develop coping & personal stress Mgt strategies, Refer to Behavioral Health if appropriate, Refer to Physician if appropriate, Instruct patient to recognize signs & symptoms of depression and Instruct patient to recog Psychosocial - 30-Day Visit Date of Eval: 10/29/24 Session Number:: 20 Problems/Goals History of Emotional Disorders: None Psychosocial Goals: 1. Patient is free from overwhelming symtoms of depression (or anxiety, 2. Identifies personal stressors & states the strategies for managing, 3. Identifies activities to decrease isolation and/or symptoms of, 4. Improved psychosocial coping skills., 5. Verbalizes coping strategies., 6. Adequate treatment of depression. and 7. Improved Q.O.L. Psychosocial Test Tool Used:: Pulmonary QOL and PHQ-9 Questionnaire Referred to MD for counseling:: No Referral to Behavioral Health PS - Interventions: Yes: Attend Stress Management Classes Plan Interventions/Plan:: Assess stressors,coping strategies & signs of derpression on admission, Instruct/assist pt to develop coping & personal stress Mgt strategies, Refer to Behavioral Health if appropriate, Refer to Physician if appropriate, Instruct patient to recognize signs & symptoms of depression and Instruct patient to recog Psychosocial - 60-Day Visit Date of Eval: 10/29/24 Session Number:: 20 Problems/Goals History of Emotional Disorders: None Psychosocial Goals: 1. Patient is free from overwhelming symtoms of depression (or anxiety, 2. Identifies personal stressors & states the strategies for managing, 3. Identifies activities to decrease isolation and/or symptoms of, 4. Improved psychosocial coping skills., 5. Verbalizes coping strategies., 6. Adequate treatment of depression. and 7. Improved Q.O.L. Psychosocial Test Tool Used:: Pulmonary QOL and PHQ-9 Questionnaire Referred to MD for counseling:: No Referral to Behavioral Health PS - Interventions: Yes: Attend Stress Management Classes Plan Interventions/Plan:: Assess stressors,coping strategies & signs of derpression on admission, Instruct/assist pt to develop coping & personal stress Mgt strategies, Refer to Behavioral Health if appropriate, Refer to Physician if appropriate, Instruct patient to recognize signs & symptoms of depression and Instruct patient to recog Psychosocial - 90-Day Visit Session Number:: 20 (Pt does not require O2) Problems/Goals History of Emotional Disorders: None Psychosocial Goals: 1. Patient is free from overwhelming symtoms of depression (or anxiety, 2. Identifies personal stressors & states the strategies for managing, 3. Identifies activities to decrease isolation and/or symptoms of, 4. Improved psychosocial coping skills., 5. Verbalizes coping strategies., 6. Adequate treatment of depression. and 7. Improved Q.O.L. Psychosocial Test Tool Used:: Pulmonary QOL and PHQ-9 Questionnaire Referred to MD for counseling:: No Referral to Behavioral Health PS - Interventions: Yes: Attend Stress Management Classes Plan Interventions/Plan:: Assess stressors,coping strategies & signs of derpression on admission, Instruct/assist pt to develop coping & personal stress Mgt strategies, Refer to Behavioral Health if appropriate, Refer to Physician if appropriate, Instruct patient to recognize signs & symptoms of depression and Instruct patient to recog Psychosocial - Final Assess Visit Session Number:: 20 (Pt does not require O2) Problems/Goals History of Emotional Disorders: None Psychosocial Goals: 1. Patient is free from overwhelming symtoms of depression (or anxiety, 2. Identifies personal stressors & states the strategies for managing, 3. Identifies activities to decrease isolation and/or symptoms of, 4. Improved psychosocial coping skills., 5. Verbalizes coping strategies., 6. Adequate treatment of depression. and 7. Improved Q.O.L. Psychosocial Test Tool Used:: Pulmonary QOL and PHQ-9 Questionnaire Referred to MD for counseling:: No Referral to Behavioral Health PS - Interventions: Yes: Attend Stress Management Classes Plan Interventions/Plan:: Assess stressors,coping strategies & signs of derpression on admission, Instruct/assist pt to develop coping & personal stress Mgt strategies, Refer to Behavioral Health if appropriate, Refer to Physician if appropriate, Instruct patient to recognize signs & symptoms of depression and Instruct patient to recog Oxygen & Oxygen Titration Init Visit Session Number:: 20 Initial Assessment SpO2:: 92 Oxygen & Oxygen Titration 30D Visit Date of Eval: 10/29/24 Session Number:: 20 (Pt does not require O2) Reassessment SpO2:: 92 Oxygen & Oxygen Titration 60D Visit Date of Eval: 10/29/24 Session Number:: 20 (Pt does not require O2) Reassessment SpO2:: 92 Oxygen & Oxygen Titration 90D Visit Date of Eval: 10/29/24 Session Number:: 20 (Pt does not require O2) Reassessment SpO2:: 92 Oxygen & Oxygen Titration SAGAR Visit Date of Eval: 10/29/24 Session Number:: 20 (Pt does not require O2) Reassessment SpO2:: 92 Core Components - Initial Visit Session Number:: 20 (Pt does not require O2) Hypertension Hypertension Diagnosis:: Hypertension ICD-10 I10 BP: 92/66 [place] [employer] Hypertension Guidelines Blood Pressure: 118/70 Outcomes/Goals: Able to verbalize/achieve optimal blood pressure <130/80 and Incorporates diet changes & exercise for blood pressure control by DC Tobacco - Initial Assessment Tobacco Program Goals Tobacco Use: Non-smoker Diabetes Diabetes:: No Core Components - 30 DAYS Visit Date of Eval: 10/29/24 Session Number:: 20 (Pt does not require O2) Hypertension Hypertension Diagnosis:: Hypertension ICD-10 I10 Resting Blood Pressure:: 92/66 [place] [employer] Hypertension Guidelines Peak Exercise Blood Pressure:: 118/70 Change in medication: No Outcomes/Goals: Able to verbalize/achieve optimal blood pressure <130/80 and Incorporates diet changes & exercise for blood pressure control by DC Interventions/plan: Instruct on optimal blood pressure, hypertension & medications and Instruct on effects of sodium, alcohol, stress, exercise &hypertension 30 day Reassessments:: Met Reassessment Notes & Comments:: Pt's BP's are within AHA normal limits. Tobacco - 30-Day Tobacco Program Goals Tobacco Use: Non-smoker Exacerbation Mgmt & Airway Clearance Reassessment: Demonstrates knowledge of O2 Rx at rest and Demonstrates knowledge of O2 Rx with exercise Bronchial Hygiene Plan: Yes: Pt demonstrates correctly for effective cough, Yes: Pt demo correct for CPT, Yes: Pt demo correct for device, Yes: Pt demo correct for NS nasal spray, Yes: Pt demo correct for sputum management, Yes: Pt demo correct for improved hydration, Yes: Pt demo correct for hand hygiene, Yes: Pt demo correct for evalute sputum, Yes: Pt demo correct for verbalize when to call MD and Yes: Pt demo correct for cleaning of respiratory equipment Medication Taking medications 100% of the time:: Met (Pt is taking his meds as prescribed.) Medication reassessment: Yes: Pt demonstrates correct technique timing for MDI, Yes: Pt demonstrates correct technique timing for DPI, Yes: Pt demonstrates correct technique timing for NEB and Yes: Pt demonstrates correct technique timing for spacer Diabetes Diabetes:: No Core Components - 60 DAYS Visit Date of Eval: 10/29/24 Session Number:: 20 (Pt does not require O2) Hypertension Hypertension Diagnosis:: Hypertension ICD-10 I10 Resting Blood Pressure:: 92/66 [place] [employer] Hypertension Guidelines Peak Exercise Blood Pressure:: 118/70 Change in medication: No Outcomes/Goals: Able to verbalize/achieve optimal blood pressure <130/80 and Incorporates diet changes & exercise for blood pressure control by DC Interventions/plan: Instruct on optimal blood pressure, hypertension & medications and Instruct on effects of sodium, alcohol, stress, exercise &hypertension 60 day Reassessments:: Met Reassessment Notes & Comments:: Pt's BP's are within AHA normal limits. Tobacco - 60-Day Tobacco Program Goals Tobacco Use: Non-smoker Exacerbation Mgmt & Airway Clearance Reassessment: Demonstrates knowledge of O2 Rx at rest and Demonstrates knowledge of O2 Rx with exercise Bronchial Hygiene Plan: Yes: Pt demonstrates correctly for effective cough, Yes: Pt demo correct for CPT, Yes: Pt demo correct for device, Yes: Pt demo correct for NS nasal spray, Yes: Pt demo correct for sputum management, Yes: Pt demo co rrect for improved hydration, Yes: Pt demo correct for hand hygiene, Yes: Pt demo correct for evalute sputum, Yes: Pt demo correct for verbalize when to call MD and Yes: Pt demo correct for cleaning of respiratory equipment Medication Medication list reviewed:: Yes Taking medications 100% of the time:: Met Taking medications 100% of the time:: Met (Pt is taking his meds as prescribed.) Medication reassessment: Yes: Pt demonstrates correct technique timing for MDI, Yes: Pt demonstrates correct technique timing for DPI, Yes: Pt demonstrates correct technique timing for NEB and Yes: Pt demonstrates correct technique timing for spacer 60-day Reassessments:: Met Diabetes Diabetes:: No Core Components - 90 DAYS Visit Session Number:: 20 (Pt does not require O2) Hypertension Hypertension Diagnosis:: Hypertension ICD-10 I10 Resting Blood Pressure:: 92/66 [place] [employer] Hypertension Guidelines Peak Exercise Blood Pressure:: 118/70 Outcomes/Goals: Able to verbalize/achieve optimal blood pressure <130/80 and Incorporates diet changes & exercise for blood pressure control by DC Interventions/plan: Instruct on optimal blood pressure, hypertension & medications and Instruct on effects of sodium, alcohol, stress, exercise &hypertension 90 day Reassessments:: Met Reassessment Notes & Comments:: Pt's BP's are within AHA normal limits. Tobacco - 90-Day Tobacco Program Goals Tobacco Use: Non-smoker Exacerbation Mgmt & Airway Clearance Bronchial Hygiene Plan: Yes: Pt demonstrates correctly for effective cough, Yes: Pt demo correct for CPT, Yes: Pt demo correct for device, Yes: Pt demo correct for NS nasal spray, Yes: Pt demo correct for sputum management, Yes: Pt demo correct for improved hydration, Yes: Pt demo correct for hand hygiene, Yes: Pt demo correct for evalute sputum, Yes: Pt demo correct for verbalize when to call MD and Yes: Pt demo correct for cleaning of respiratory equipment Medication Medication reassessment: Yes: Pt demonstrates correct technique timing for MDI, Yes: Pt demonstrates correct technique timing for DPI, Yes: Pt demonstrates correct technique timing for NEB and Yes: Pt demonstrates correct technique timing for spacer Diabetes Diabetes:: No Core Components - Final Visit Session Number:: 20 (Pt does not require O2) Hypertension Hypertension Diagnosis:: Hypertension ICD-10 I10 Resting Blood Pressure:: 92/66 [place] [employer] Hypertension Guidelines Peak Exercise Blood Pressure:: 118/70 Outcomes/Goals: Able to verbalize/achieve optimal blood pressure <130/80 and Incorporates diet changes & exercise for blood pressure control by DC Tobacco - Final Tobacco Program Goals Tobacco Use: Non-smoker Exacerbation Mgmt & Airway Clearance Bronchial Hygiene Plan: Yes: Pt demonstrates correctly for effective cough, Yes: Pt demo correct for CPT, Yes: Pt demo correct for device, Yes: Pt demo correct for NS nasal spray, Yes: Pt demo correct for sputum management, Yes: Pt demo correct for improved hydration, Yes: Pt demo correct for hand hygiene, Yes: Pt demo correct for evalute sputum, Yes: Pt demo correct for verbalize when to call MD and Yes: Pt demo correct for cleaning of respiratory equipment Medication Medication reassessment: Yes: Pt demonstrates correct technique timing for MDI, Yes: Pt demonstrates correct technique timing for DPI, Yes: Pt demonstrates correct technique timing for NEB and Yes: Pt demonstrates correct technique timing for spacer Diabetes Diabetes:: No Patient Health Questionnaire PHQ-9 Screening 60-Day Re-eval Assessment: 1. Little interest or pleasure in doing things: Not at all 2. Feeling down, depressed, or hopeless: Not at all 3. Trouble falling or staying asleep, or sleeping too much: Several days 4. Feeling tired or having little energy: Several days 5. Poor appetite or overeating: Not at all 6. Feeling bad about yourself -- or that you are a failure or have let yourself or your family down: Not at all 7. Trouble concentrating on things, such as reading the newspaper or watching television: Not at all 8. Moving or speaking so slowly that other people could have noticed. Or the opposite - being so fidgety or restless that you have been moving around a lot more than usual: Not at all 9. Thoughts that you would be better off , or of hurting yourself in some way: Not at all How difficult have these problems made it for you to do your work, take care of things at home, or get along with other people?: Not difficult at all Total Score: 2 Knowledge Questionaire (BCKQ) Information Information: [place] COPD Knowledge Questionnaire (BCKQ) This questionnaire is designed to find out what you know about your lung problem. It should be completed without help form anyone else. This usually takes between 10 and 20 minutes. Your answers will help us to find out what information you need to help you to understand and manage your lung condition. Mal the havasupai which you think is the correct answer. Self-Efficacy 6-Item Scale 60-Day Re-eval Assessment: We would like to know how confident you are in doing certain activities. Please select your confidence level for: Fatigue Select Number: 4 Physical Discomfort or Pain Select Number: 4 Emotional Distress Select Number: 4 Other Symptoms or Health Problems Select Number: 4 Different Tasks and Activities Select Number: 4 Medication Select Number: 5 Total Score:: 4 Nutrition Survey Nutrition Survey Instructions Scoring Instructions
[2024-10-29 08:15] VITALS: BP 92/66; O2SAT 92; BMI 32.6
[2024-10-29 08:20] VITALS: BP 118/70; BP 92/66
== END | disposition home or self-care (01) ==
PROVIDERS: Referring Provider Physician Assistant Medical; Visit Provider Physician Assistant Medical
DX: R00.0 Tachycardia, unspecified (principal)

== ENCOUNTER 2024-10-31 10:00 | Outpatient (RCR) | payer OTHER, SELFPAY ==
[2024-09-26 09:44] VITALS: BMI 32.3
[2024-10-15 00:42] VITALS: BP 126/66; BMI 32.3
== END 2024-11-14 23:59 ==
LOC: PR 10:00
PROVIDERS: Referring Provider Thoracic Surgery (Cardiothoracic Vascular Surgery); Visit Provider Thoracic Surgery (Cardiothoracic Vascular Surgery)
DX: J94.2 Hemothorax (principal)
CPT/HCPCS: 97150; G0239

== ENCOUNTER 2024-11-04 14:10 | Emergency (ER) | payer OTHER, SELFPAY ==
[2024-10-29 08:15] VITALS: BMI 32.6
[2024-11-04 14:11] VITALS: BP 163/104; PULSE 105; RESP 16; TEMP 36.2; O2SAT 100; BMI 30.9
--- NOTE | 2024-11-04 14:15 | EKG12_ITS ---
Test Reason : NEURO Blood Pressure : */* mmHG Vent. Rate : 94 BPM Atrial Rate : 94 BPM P-R Int : 122 ms QRS Dur : 84 ms QT Int : 370 ms P-R-T Axes : 43 34 17 degrees QTcB Int : 462 ms Normal sinus rhythm Normal ECG Confirmed by GRADY SAWYER, TODD ([id number]), news videotape editor HALEIGH JACQUES ([id number]) on 11/11/2024 6:49:35 AM Referred By: Confirmed By: TODD RASMUSSEN MD
--- NOTE | 2024-11-04 14:16 | CT_ITS ---
We are attempting to reach an attending provider to discuss findings. An addendum with communication details will be sent when the communication is complete. EXAM: CT HEAD WITHOUT INTRAVENOUS CONTRAST CLINICAL INDICATION: Neuro deficit, acute, stroke suspected TECHNIQUE: Multiple axial images were obtained of the head without intravenous contrast. This CT exam was performed using one or more of the following dose reduction techniques: automated exposure control, adjustment of the mA and/or kV according to patient size, and/or use of iterative reconstruction technique. RADIATION DOSE: CTDIvol = 47.06 mGy, DLP = 890.33 mGy-cm COMPARISON: CT head without contrast 05/20/2024. FINDINGS: BRAIN AND EXTRA-AXIAL SPACES: 1 cm thick acute hyperdense subdural hematoma overlying the left cerebral hemisphere causing mild mass effect. 2.6 mm thick acute hyperdense subdural hematoma along the left side of the falx cerebri. 4.3 mm [id number]-ts-[id number] midline shift. No evidence of acute infarct. There is preservation of the trivedi/white matter interface. Posterior fossa structures are unremarkable. Ventricles are appropriate for age. No hydrocephalus. Basal cisterns are patent. BONES/JOINTS: Unremarkable. No discrete lytic or blastic abnormalities. SINUSES: Unremarkable as visualized. Clear. MASTOID AIR CELLS: Unremarkable. Clear. ORBITS: Visualized globes, extraocular muscles, optic nerves and retrobulbar fat appear unremarkable. CT/STROKE Brain/Head without Cont IMPRESSION: 1. 1 cm thick acute hyperdense subdural hematoma overlying the left cerebral hemisphere causing mild 4.3 mm [id number] midline shift. This is a new finding. 2. 2.6 mm acute hyperdense subdural hematoma along the posterior left side of the falx cerebri. This is a new finding. 3. No acute ischemic infarct or remote ischemic infarct. 4. Total ASPECTS score: 10/10. Electronically Signed: Ankur Henley MD at 14:30 EST ,
--- NOTE | 2024-11-04 14:20 | EDS_ITS ---
HPI History of Present Illness Chief Complaint: Stroke Alert Informant: patient and family Narrative Narrative: 54-year-old male states that around noon he developed some weakness/tingling/paresthesias in the right hand. Sometime after that he developed difficulty speaking. He has a history of coronary artery disease and is on Brilinta as well as aspirin. He currently notes bilateral leg weakness. He states the hand symptoms is no longer present. He notes a generalized headache since Sunday. Patient had his cardiac stents placed in December 2023. [facility] Medical History Impaired fasting glucose Elevated PSA GERD (gastroesophageal reflux disease) Chest pain Gout Hypercholesteremia Hypertension Home Medications ?Medication ?Instructions ?Recorded ?Last Taken ?Type allopurinol 300 mg tablet 300 mg PO DAILY gout 11/25/23 12/21/23 History losartan 100 mg tablet 100 mg PO DAILY blood pressure 11/25/23 12/21/23 History rosuvastatin 5 mg tablet 5 mg PO DAILY cholesterol 11/25/23 12/21/23 History aspirin 81 mg tablet,delayed 81 mg PO QDAY heart health #90 tabs 12/19/23 12/21/23 Rx release (Adult Low Dose Aspirin) hydrochlorothiazide 25 mg tablet 25 mg PO DAILY diuretic #90 tabs 12/19/23 Unknown Rx nitroglycerin 0.4 mg sublingual 0.4 mg sublingual Q5-15M PRN chest 12/19/23 Unknown History tablet pain pantoprazole 40 mg tablet,delayed 40 mg PO DAILY reflux 12/19/23 12/21/23 History release tamsulosin 0.4 mg capsule 0.4 mg PO DAILY prostate #30 caps 12/19/23 Unknown Rx ticagrelor 90 mg tablet (Brilinta) 90 mg PO BID #60 tabs 12/21/23 Unknown Rx Allergy/AdvReac Type Severity Reaction Status Date / Time No Known Allergies Allergy Verified 11/04/24 14:15 Family History Grandfather Myocardial infarction Grandmother Breast cancer Thyroid cancer Throat cancer Surgical History Stented coronary artery (12/21/23) Social History Smoking Status: Never smoker alcohol intake: current alcohol intake frequency: 3 or more drinks per day Alcohol type: beer ROS ROS ED Constitutional Constitutional ED: Denies chills or weight loss Eyes Eyes: Denies change in vision or diplopia ENT ENT ED: Denies ear pain, rhinorrhea or sore throat Cardiovascular Cardiovascular: Denies chest pain, orthopnea, palpitations or racing heartbeat Respiratory/Chest Respiratory/Chest: Denies cough, dyspnea or orthopnea Gastrointestinal Gastrointestinal: Denies abdominal pain, diarrhea, nausea or vomiting Genitourinary Genitourinary ED: Denies dysuria, hematuria or urinary frequency Musculoskeletal Musculoskeletal: Denies arthralgias or myalgias Integumentary Denies abscess or rash Neurologic Neurologic: Reports headache(s), paresthesias, weakness and other Details: Slurred speech Psychiatric Psychiatric: Denies anxiety, depression, suicidal ideation or suicidal thoughts Endocrine Endocrinology: Denies polydipsia, polyphagia or polyuria Allergic/Immunologic Allergic/Immunologic ED: Denies mouth swelling, tongue swelling or urticaria EXAM Physical Exam Const Vital Signs: 11/04/24 14:11 11/04/24 14:11 11/04/24 14:21 Temperature 97.1 F L 97.1 F L Temperature Source Temporal Temporal Pulse Rate 105 H 105 H Respiratory Rate 16 16 Blood Pressure 163/104 H 163/104 H Blood Pressure Mean 123 123 Pulse Ox 100 100 Oxygen Delivery Method Room Air Room Air Room Air 11/04/24 14:21 11/04/24 14:45 Temperature Temperature Source Pulse Rate 101 H 79 Respiratory Rate 26 H 18 Blood Pressure 132/98 H 131/83 H Blood Pressure Mean 109 99 Pulse Ox 100 100 Oxygen Delivery Method Room Air Room Air Positive well nourished and well developed General Appearance ED: well developed and NAD HEENT Reports normocephalic, head/scalp atraumatic and moist mucous membranes Eyes PERRL and EOMs intact bilaterally Neck no lymphadenopathy, supple and no JVD Resp normal respiratory effort and clear to auscultation bilaterally Cardio regular rate, regular rhythm and no murmurs Rate: tachycardic GI normal to inspection, nondistended, normoactive bowel sounds and non-tender Palpation: soft Back/Spine no CVA tenderness and normal ROM Extremity normal to inspection General Extremety ED: Negative for edema General Extremity: Negative for edema Neuro oriented x3, CN's II-XII intact bilaterally and no sensory deficits noted Neuro Narrative: Patient has slurred speech Des Coma Scale: document GCS findings Spontaneous Obeys Commands Oriented 15 Sensorium / Orientation: alert Motor Exam: strength 5/5 throughout Psych mental status grossly normal Mood & Affect: Negative for depressed or tearful Skin no rashes or lesions noted and no wounds MDM MDM MDM Narrative Medical decision making narrative: Stroke team was called by ED triage nurse. I evaluated the patient in the triage room. He was taken directly to CT scan. CT scan demonstrates an acute subdural hematoma with 10 mm at its maximum thickness along the left side of the falx cerebri. There is a 4 mm [id number] shift. Patient was brought back to the resuscitation room. I spoke with the patient and his family. They are requesting transfer to [facility]. I spoke with the [facility] Transfer line and later with the emergency department attending. He has been accepted there and we are currently waiting ground transportation. We talked specifically about [facility] and at this point the recommendation was to hold until his arrival there. Blood work was reviewed. My independent interpretation the chest x-ray is no acute process. History & Record Review Discussion w/independent historian: Patient and Family Lab Data Attestation: I reviewed the patient's lab results. Labs: Laboratory Results - last 24 hr 11/04/24 14:15 WBC 6.7 RBC 5.24 Hgb 14.8 Hct 43.8 MCV 83.6 MCH 28.2 MCHC 33.8 RDW Std Deviation 44.5 H RDW Coeff of [place] 14.6 Plt Count 200 MPV 9.4 Immature Gran % (Auto) 0.500 Neut % (Auto) 47.8 Lymph % (Auto) 38.0 [place] % (Auto) 9.6 Eos % (Auto) 2.9 Baso % (Auto) 1.2 H Absolute Neuts (auto) 3.2 Absolute Lymphs (auto) 2.53 Nucleated RBC % 0 PT 12.8 INR 0.9 APTT 24.1 Sodium 136 Potassium 3.5 Chloride 103 Carbon Dioxide 26.0 Anion Gap 7 BUN 16 Creatinine 1.02 Estim Creat Clear Calc 88.37 Est GFR (MDRD) Af Amer 98 Est GFR (MDRD) Non-Af 81 BUN/Creatinine Ratio 15.7 Glucose 136 H Calcium 9.8 Troponin I High Sens 4 Radiography Diagnostic Testing: Clinical Impression(s) from Imaging Studies Brain CT 11/04/24 14:16 IMPRESSION: 1. 1 cm thick acute hyperdense subdural hematoma overlying the left cerebral hemisphere causing mild 4.3 mm [id number] midline shift. This is a new finding. 2. 2.6 mm acute hyperdense subdural hematoma along the posterior left side of the falx cerebri. This is a new finding. 3. No acute ischemic infarct or remote ischemic infarct. 4. Total ASPECTS score: 10/10. Electronically Signed: Ankur Henley MD at 14:30 EST , ADDENDUM: 11/04/24 1447 IMPRESSION: 1. 1 cm thick acute hyperdense subdural hematoma overlying the left cerebral hemisphere causing mild 4.3 mm [id number]-yt-[id number] midline shift. This is a new finding. 2. 2.6 mm acute hyperdense subdural hematoma along the posterior left side of the falx cerebri. This is a new finding. 3. No acute ischemic infarct or remote ischemic infarct. 4. Total ASPECTS score: 10/10. N.B. : The above Results were Read Back by Ankur Henley MD to Maranda Banks RN, and understanding confirmed on 11/04/2024 14:40:09 (ET). Electronically Signed: Ankur Henley MD at 14:30 EST , EKG Initial EKG: Attestation: I personally reviewed and interpreted this EKG as follows: Comments: Normal sinus rhythm ventricular rate of 94 bpm. Management Discussion w/another healthcare provider: Recruiting Team Lead ([facility] [employer] [employer] [facility]) and Radiologist Stroke Documentation Questions Stroke Team Activated: Yes Reviewed Inclusion/Exclusion criteria: Yes Was Patient considered for Endovascular Intervention?: No-CTA not indicated IV Thrombolytic Administered: No No contraindications from thrombolytic administration: No Critical Care Time Critical Care Time: Yes Critical care time (excluding procedures): 30-74 minutes (35 min), Including time spent:, Discussing w/Patient &/or Family/[employer], Discussing w/Consultants, Arranging Admission or Transfer and Performing Direct Patient Care at Bedside Discharge Plan Triage Chief Complaint: Stroke Alert ED Provider: Maik Bailey Dx/Rx/DC Orders Clinical Impression: Acute subdural hematoma, Dysarthria Prescriptions: No Action pantoprazole 40 mg tablet,delayed release (DR/EC) 40 mg PO DAILY nitroglycerin 0.4 mg tablet, sublingual 0.4 mg sublingual Q5-15M PRN (Reason: chest pain) Rx Instructions: do not exceed 3 doses per episode aspirin [Adult Low Dose Aspirin] 81 mg tablet,delayed release (DR/EC) 81 mg PO QDAY Qty: 90 3RF hydrochlorothiazide 25 mg tablet 25 mg PO DAILY Qty: 90 3RF tamsulosin 0.4 mg capsule 0.4 mg PO DAILY Qty: 30 11RF losartan 100 mg tablet 100 mg PO DAILY Patient Comments: TAKE 1 TABLET BY MOUTH ONCE DAILY allopurinol 300 mg tablet 300 mg PO DAILY Patient Comments: TAKE 1 TABLET BY MOUTH ONCE DAILY WITH FOOD rosuvastatin 5 mg tablet 5 mg PO DAILY Patient Comments: TAKE 1 TABLET BY MOUTH EVERY DAY AT BEDTIME Brilinta 90 mg Tablet 90 mg PO BID Qty: 60 11RF [facility] [facility] [Primary [facility] Provider] - Print Language: Malagasy Disposition Disposition: Acute Care Hospital Discharge Location: [facility] NIHSS NIHSS 1a. Level of Consciousness: Alert; keenly responsive 1b. LOC Questions: Answers BOTH questions correctly. 1c. LOC Commands: Performs both tasks correctly. 2. Best Gaze: Normal 3. Visual: No visual loss 4. Facial Palsy: Normal symmetrical movements 5a. Left Arm: No drift; arm holds 90 (or 45) degrees for full 10 seconds 5b. Right Arm: No drift; arm holds 90 (or 45) degrees for full 10 seconds 6a. Left Leg: No drift; leg holds 30-degree position for full 5 seconds 6b. Right Leg: No drift; leg holds 30-degree position for full 5 seconds 7. Limb Ataxia: Absent 8. Sensory: Normal; no sensory loss 9. Best Language: No aphasia; normal 10. Dysarthria: [id number]-[id number] dysarthria; 11. Extinction and Inattention: No abnormality Total: 1 Stroke Questions Stroke Team Activated: Yes a.Reviewed Inclusion/Exclusion criteria: Yes IV Thrombolytic Administered: No No contraindications from thrombolytic administration: No
[2024-11-04 14:21] VITALS: BP 132/98; PULSE 101; RESP 26; O2SAT 100
[2024-11-04 14:24] VITALS: BMI 30.9
[2024-11-04 14:24] LABS: Absolute Lymphocyte Count 2.53 X10^3/uL (0.83-4.51); Absolute Neutrophil Count 3.2 X10^3/uL (2.0-7.7); Basophil# 0.08 X10^3/uL; Basophil% 1.2 % (0-1); Eosinophil# 0.19 X10^3/uL; Eosinophils% 2.9 % (0-5); Hematocrit 43.8 % (40-54); Hemoglobin 14.8 g/dL (13.0-16.5); Lymphocyte # 2.53 X10^3/ul (0.83-4.51); Mean Corp Hgb Conc 33.8 g/dL (32-36); Mean Corpuscular Hgb 28.2 pg (27.0-32.0); Mean Corpuscular Volume 83.6 fL (80-94); Mean Platelet Vol. 9.4 fl (6.2-12.0); Monocyte# 0.64 X10^3/uL; Monocyte% 9.6 % (0-10); NRBC Flagged by Analyzer 0 % (0-5); Neutrophil # 3.19 X10^3/uL (2.7-7.7); Neutrophil % 47.8 % (47-70); Platelet Count 200 K/mm3 (150-450); RBC Distribution Width CV 14.6 % (11.6-14.6); RBC Distribution Width SD 44.5 fl (35.1-43.9); Red Blood Count 5.24 M/mm3 (4.6-6.2); White Blood Count 6.7 K/mm3 (4.4-11.0)
[2024-11-04 14:33] LABS: International Normalized Ratio 0.9; Partial Thromboplast Time 24.1 Seconds (24.1-36.2); Prothrombin Time (Protime)PT. 12.8 SECONDS (11.7-14.9)
[2024-11-04 14:40] LABS: Anion Gap 7 (5-15); BUN 16 mg/dL (7-18); BUN/Creat Ratio 15.7 RATIO (10-20); Calcium,Total 9.8 mg/dL (8.5-10.1); Chloride 103 mmol/L (98-107); Creatinine, Serum 1.02 mg/dL (0.70-1.30); EST Glomerular Filtration Rate 81 mL/min (>60); Est Glom Filt Rate - Afr Amer 98 mL/min (>60); Estimated Creatinine Clearance 88.37 ml/min; Glucose 136 mg/dL (74-106); Potassium 3.5 mmol/L (3.5-5.1); Sodium Level 136 mmol/L (136-145); Troponin-I HS 4 pg/mL (3.0-78.0)
[2024-11-04 14:45] VITALS: BP 131/83; PULSE 79; RESP 18; O2SAT 100
--- NOTE | 2024-11-04 14:45 | RAD_ITS ---
EXAM: XR CHEST, 1 VIEW CLINICAL INDICATION: Neuro deficit, acute, stroke suspected TECHNIQUE: Frontal view of the chest. COMPARISON: 05/20/2024. FINDINGS: LUNGS AND PLEURAL SPACES: The lungs are clear. No pneumothorax. No effusion. HEART: Unremarkable. Cardiac silhouette not enlarged. MEDIASTINUM: Central airways and mediastinal contour are unremarkable. BONES/JOINTS: Old fracture of the left posterior seventh rib. SOFT TISSUES: Unremarkable. RAD/Chest 1 View IMPRESSION: 1. No acute findings in the chest. 2. Interval removal of left chest tube drain when compared to 05/20/2024. Electronically Signed: Ankur Henley MD at 15:36 EST ,
[2024-11-04 15:00] VITALS: BP 131/94; PULSE 83; RESP 20; TEMP 36.6; O2SAT 99
--- NOTE | 2024-11-04 15:12 | ED.RN ---
Report given to [facility] ER
[2024-11-04 15:15] VITALS: BP 138/96; PULSE 101; RESP 19; O2SAT 99
== END 2024-11-04 15:20 | disposition short-term general hospital (02) ==
PROVIDERS: Emergency Provider Emergency Medicine; Visit Provider Emergency Medicine
DX: I62.01 Nontraumatic acute subdural hemorrhage (principal); I25.10 Atherosclerotic heart disease of native coronary artery without angina pectoris; E78.00 Pure hypercholesterolemia, unspecified; R47.1 Dysarthria and anarthria; I10 Essential (primary) hypertension; Z79.02 Long term (current) use of antithrombotics/antiplatelets; Z79.82 Long term (current) use of aspirin; K21.9 Gastro-esophageal reflux disease without esophagitis; R51.9 Headache, unspecified; R20.2 Paresthesia of skin; R20.0 Anesthesia of skin; R29.898 Other symptoms and signs involving the musculoskeletal system
CPT/HCPCS: 70450; 71045; 80048; 84484; 85025; 85610; 85730; 93005; 99285; A4216

== ENCOUNTER → 2025-01-08 | Outpatient (CLI) | payer OTHER, SELFPAY ==
[2024-11-27 07:40] VITALS: BMI 32.5
[2025-01-08 12:53] LABS: PSA,Total- Diagnostic 4.47 ng/mL (0.00-4.00)
== END | disposition home or self-care (01) ==
PROVIDERS: PCP Nurse Practitioner Family; Referring Provider Urology; Visit Provider Urology
DX: R97.20 Elevated prostate specific antigen [PSA] (principal)
CPT/HCPCS: 36415; 84153

== ENCOUNTER → 2025-02-19 | Outpatient (CLI) | payer OTHER, SELFPAY ==
[2024-11-27 07:40] VITALS: BMI 32.5
--- NOTE | 2025-02-19 13:30 | MRI_ITS ---
PROCEDURE: PELVIS W/WO CONTRAST, 02/19/2025 REASON FOR EXAM: ELEVATED PSA 4.47 TECHNIQUE: Multisequence multiplanar MRI pelvis was performed with and without IV contrast. IV Contrast: 19 mL Clariscan COMPARISON: None FINDINGS: Note dynamic postcontrast imaging was not performed; an alternative PI-RADS algorithm was therefore utilized. Prostate size: 5.0 x 4.3 x 5.4 cm, estimated volume 60.4 ML. Per the above provided PSA, PSA density is 0.074 ng/mL. Few T1 bright foci on precontrast sequences, possible post biopsy blood products. Transition zone: PI-RADS 2 findings. Peripheral Zone: Mild background changes of likely prostatitis (PI-RADS 2). Neurovascular bundles: Unremarkable. Seminal vesicles: Unremarkable. Bladder: Mild wall thickening could reflect mild chronic bladder outlet obstruction. Mass-effect by the enlarged prostate with intraluminal protrusion of exophytic transition zone parenchyma.. Lymph nodes: Unremarkable. Bones: No destructive or frankly suspicious bony lesions identified. Other: Small fat containing LEFT inguinal hernia.. MRI/Pelvis W/WO Contrast IMPRESSION: 1. Prostatomegaly/BPH and mild sequela of likely prostatitis without high risk lesion identified (PI-RADS 2). 2. No overt pelvic lymphadenopathy. 3. Additional description as above. Reading Location: [id number]
== END | disposition home or self-care (01) ==
LOC: OPMRI 13:03
PROVIDERS: PCP Nurse Practitioner Family; Referring Provider Urology; Visit Provider Urology
DX: R97.20 Elevated prostate specific antigen [PSA] (principal)
CPT/HCPCS: 72197; A9575